=== PATIENT | male | born 1935 | race Caucasian/White ===

== ENCOUNTER → 2016-12-07 | Outpatient (CLI) | payer MEDICARE, BC ==
[2016-12-07 13:48] LABS: EKG EKG PERFORMED
[2016-12-07 14:12] LABS: Basophils % (A) 0 %; CH 33.4; CHCM 33.4; Eosinophils # (A) 0.1 k/uL (0-0.7); Eosinophils % (A) 1 %; HCT 46.9 % (39.0-53.0); HDW 2.46; HGB 15.3 gm/dL (13.0-17.5); Luc % (Auto) 3; Lymphocytes # (A) 1.7 k/uL (1.0-4.8); Lymphocytes % (A) 24 %; MCH 32.8 pg (25.0-35.0); MCHC 32.6 g/dL (31.0-37.0); MCV 100.4 fL (80.0-100.0); Mean Platelet Volume 7.3; Monocytes # (A) 0.5 k/uL (0-1.0); Monocytes % (A) 8 %; Neutrophils # (A) 4.4 k/uL (1.3-7.7); Neutrophils % (A) 64 %; RBC 4.67 m/uL (4.30-5.90); RDW 12.7 % (11.5-15.5); WBC 6.9 k/uL (3.8-10.6); WBC (Perox) 7.52
[2016-12-07 14:25] LABS: Anion Gap 10 mmol/L; Blood Urea Nitrogen 23 mg/dL (9-20); Calcium 9.7 mg/dL (8.4-10.2); Carbon Dioxide 26 mmol/L (22-30); Chloride 106 mmol/L (98-107); Glucose 116 mg/dL (74-99); Non-African American GFR(MDRD) 58 (>60 ml/min/1.73 sqM); Potassium 4.4 mmol/L (3.5-5.1); Sodium 142 mmol/L (137-145)
== END | disposition home or self-care (01) ==
LOC: LABPAT 13:34
PROVIDERS: ATTEND Urology
DX: Z01.812 Encounter for preprocedural laboratory examination (principal); N40.1 Benign prostatic hyperplasia with lower urinary tract symptoms; Z79.899 Other long term (current) drug therapy
CPT/HCPCS: 36415; 80048; 85025; 87077; 87086; 87186; 93005

== ENCOUNTER 2016-12-13 07:54 | Day surgery (SDC) | payer MEDICARE, BC ==
[2016-12-08 08:49] VITALS: BMI 30.1
[~2016-12-13 07:54] MED LIST: DEXAMETHASONE SOD PHOSPHATE 10 MG/ML 1 ML VIAL IV ONE; HYDROmorphone 1 MG/ML 1 ML SYRINGE IVP PRN; LACTATED RINGERS 1,000 ML IV SCH; LIDOCAINE 1% 20 ML VIAL (10MG/ML) FOR IV START INTRADERMA PRN; ONDANSETRON 4 MG/2 ML VIAL IVP ONE; SCOPOLAMINE 1.5MG/72HR PATCH TRANSDERM ONE; ceFAZolin 1,000 MG in DEXTROSE/WATER 1 50ML.BAG IV ONE
[2016-12-13] MEDS ORDERED: PROPOFOL 10 MG/ML 20 ML VIAL IV ONE (10:17)
[2016-12-13] MEDS ORDERED: LIDOCAINE 1% INJ 10MG/ML (20 ML MDV) ONE (10:17)
[2016-12-13] MEDS ORDERED: ePHEDrine SULFATE/0.9% NACL/PF 50 MG/5 ML SYRINGE IV ONE (10:17)
[2016-12-13] MEDS ORDERED: fentaNYL (PF) 50 MCG/ML 2 ML AMP ONE (10:17)
[2016-12-13] MEDS ORDERED: SUCCINYLCHOLINE CHLORIDE 100 MG/5 ML SYR IV ONE (10:17)
[2016-12-13] MEDS ORDERED: MIDAZOLAM 2 MG/2 ML VIAL ONE (10:17)
--- NOTE | 2016-12-13 11:38 | P.OP ---
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 He recently developed urinary retention and remains unable to void despite previous use of tamsulosin and finasteride. TURP is planned. Description of Procedure: The patient was taken to the operating suite where general anesthesia via orotracheal intubation was instituted. The patient was placed in the dorsal lithotomy position with his legs suspended from padded Cuate stirrups. Sequential pneumatic compression stockings were applied to the lower legs. The patient's Garza catheter was removed. The genitalia was prepped with Betadine soap, painted with Betadine solution and draped in a sterile fashion. The 25- Nauruan resectoscope sheath with visual obturator and 30 lens was passed through the urethra under direct vision. The anterior urethra was unremarkable. Prostatic urethra showed evidence of elongation and effacement of the lateral lobes in the midline which appeared obstructive. The bladder was examined. 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 The interior of the diverticulum was unremarkable. Both ureteral orifices were of normal location and configuration and effluxed clear urine. Resection of the prostate was performed using the continuous-flow Davis resectoscope and bipolar loop electrode. Resection was started at 12:00 and continued down to the capsular fibers. Resection was bounded by the bladder neck proximally and the prostatic urethra adjacent to the veru distally. A concentric fashion the right and left lobes were resected down to the floor. Posteriorly numerous small prostatic calculi were unroofed. Bleeding vessels were controlled using electrocautery. At the completion of procedure the bladder neck and prostatic fossa appeared wide open. All prostate fragments were removed from the bladder and prostatic fossae using the helical evacuator. After ensuring removal of all fragments and adequate hemostasis the resectoscope was withdrawn. An 18 Garza catheter was inserted and left to gravity drainage. The patient tolerated the procedure well and left the operative room awake in satisfactory condition. Blood loss was less than 40 mL. Patient's catheter will be left in place for several days prior to removal.
[2016-12-13 11:43] VITALS: TEMP 96.9
[2016-12-13 14:29] VITALS: BP 149/76; PULSE 62; RESP 18
== END 2016-12-13 14:20 | disposition home or self-care (01) ==
LOC: OR 07:54
PROVIDERS: ATTEND Urology
DX: N40.1 Benign prostatic hyperplasia with lower urinary tract symptoms (principal); R33.8 Other retention of urine; N42.0 Calculus of prostate; N32.3 Diverticulum of bladder; I25.10 Atherosclerotic heart disease of native coronary artery without angina pectoris; I10 Essential (primary) hypertension; Z87.891 Personal history of nicotine dependence; I25.2 Old myocardial infarction; E55.9 Vitamin D deficiency, unspecified; E78.00 Pure hypercholesterolemia, unspecified; E66.9 Obesity, unspecified; Z68.30 Body mass index [BMI] 30.0-30.9, adult; Z79.82 Long term (current) use of aspirin; Z79.899 Other long term (current) drug therapy
CPT/HCPCS: 52601; 88305; J2250; J1100; J2405; J2001; J3010; J0690; J0330; J2704

== ENCOUNTER 2020-05-19 20:01 | Inpatient (IN) | payer MEDICARE, BC ==
[2020-05-19] MEDS ORDERED: SODIUM CHLORIDE 0.9% 1,000 ML IV STA (20:26)
--- NOTE | 2020-05-19 20:31 | ED ---
Weakness HPI - General Chief complaint: Weakness Stated complaint: Weakness Time Seen by Provider: 05/19/20 20:14 Source: patient, EMS Mode of arrival: EMS Limitations: no limitations - History of Present Illness Initial comments: Patient is an 85-year-old male, with history of heart disease, presenting to the emergency department via EMS with complaints of lightheadedness, weakness that started this morning. Patient states he had a little of a stomachache and some nausea and vomiting this morning but states his stomach no longer hurts as bad. He denies any nausea. He denies any chest pain or shortness of breath. He states he does have a cough but states he normally has a cough. He states he feels weak and lightheaded. He has been drinking a lot of water today. He does admit to being a daily drinker but has not had any alcohol today. He denies any recent fever or chills. He has no other complaints at this time. Upon arrival to the ER, his vital signs are stable. - Related Data Home Medications Medication Instructions Recorded Confirmed Tamsulosin [Flomax] 0.4 cap PO BID 05/31/14 05/19/20 Finasteride [Proscar] 5 mg PO HS 12/08/16 05/19/20 Metoprolol Tartrate [Lopressor] 25 mg PO QA 12/08/16 05/19/20 Cholecalciferol [Vitamin D3 (25 25 mcg PO DAILY 05/19/20 05/19/20 Mcg = 1000 Iu)] Losartan [Cozaar] 12.5 mg PO HS 05/19/20 05/19/20 Rosuvastatin Calcium [Crestor] 5 mg PO HS 05/19/20 05/19/20 Urivarx 1 cap PO HS 05/19/20 05/19/20 Vitamin E 400 unit PO DAILY 05/19/20 05/19/20 guaiFENesin [Mucinex] 600 mg PO BID PRN 05/19/20 05/19/20 Allergies Allergy/AdvReac Type Severity Reaction Status Date / Time No Known Allergies Allergy Verified 05/19/20 21:22 Review of Systems ROS Statement: Those systems with pertinent positive or pertinent negative responses have been documented in the HPI. ROS Other: All systems not noted in ROS Statement are negative. Past Medical History Past Medical History: Coronary Artery Disease (CAD), Chest Pain / Angina, Hearing Disorder / Deafness, Hyperlipidemia, Myocardial Infarction ([place]), Pro state Disorder Additional Past Medical History / Comment(s): pt poor historian Last Myocardial Infarction Date:: 2005 History of Any Multi-Drug Resistant Organisms: None Reported Past Surgical History: Heart Catheterization With Stent, Hernia Repair, Orthopedic Surgery Additional Past Surgical History / Comment(s): INJECTION IN SPINE FOR BACK PAIN- IN OFFICE =epidural steroid injectionGROWTH REMOVED FROM LEFT ANTERIOR LOWER LEG- SCIATIC NERVE PAIN Past Anesthesia/Blood Transfusion Reactions: No Reported Reaction Additional Past Anesthesia/Blood Transfusion Reaction / Comment(s): NEVER HAD BLOOD TRANSFUSION Date of Last Stent Placement:: 2005 Past Psychological History: No Psychological Hx Reported Smoking Status: Former smoker Past Alcohol Use History: Daily Past Drug Use History: None Reported Additional Drug Use History / Comment(s): SMOKED A PACK/ AT MOST WHEN SMOKED - Past Family History Brother(s) Family Medical History: Cancer Father Family Medical History: Diabetes Mellitus, Myocardial Infarction ([place]) Additional Family Medical History / Comment(s): GLAUCOMA, AORTIC ANEURYSM Mother Family Medical History: CVA/TIA General Exam - General Exam Comments Initial Comments: GENERAL: Patient is well-developed and well-nourished. Patient is nontoxic and in no acute distress. HEAD: Atraumatic, normocephalic. EYES: Pupils equal round and reactive to light, extraocular movements intact, sclera anicteric, conjunctiva are normal. Eyelids were unremarkable. ENT: TMs normal, nares patent, oropharynx clear without exudates. Moist mucous membranes. NECK: Normal range of motion, supple without lymphadenopathy or JVD. LUNGS: Unlabored respirations. Breath sounds clear to auscultation bilaterally and equal. No wheezes rales or rhonchi. HEART: Regular rate and rhythm without murmurs, rubs or gallops. ABDOMEN: Soft, mild tender RUQ, normoactive bowel sounds. No guarding, no rebound. No masses appreciated. : Deferred MUSCULOSKELETAL: Normal extremities with adequate strength and normal range of motion, no pitting or edema. No clubbing or cyanosis. NEUROLOGICAL: Patient is alert and oriented x 3. Motor and sensory are also intact. Cranial nerves II through XII grossly intact. Symmetrical smile. Normal speech, normal gait. PSYCH: Normal mood, normal affect. SKIN: Warm, Dry, normal turgor, no rashes or lesions noted. Limitations: no limitations Course Vital Signs 05/19/20 05/19/20 05/19/20 20:02 21:00 22:00 Temperature 98.7 F Pulse Rate 66 63 73 Pulse Rate [ Pulse Oximetery ] Respiratory 18 18 16 Rate Blood Pressure 106/66 137/63 Blood Pressure [Left Arm] O2 Sat by Pulse 94 L 92 L Oximetry 05/20/20 05/20/20 01:45 03:15 Temperature 98.4 F 98.5 F Pulse Rate Pulse Rate [ 72 88 Pulse Oximetery ] Respiratory 16 16 Rate Blood Pressure Blood Pressure 123/64 134/77 [Left Arm] O2 Sat by Pulse 96 96 Oximetry EKG Findings - EKG Comments: EKG Findings:: Sinus rhythm with first-degree AV block, inferior infarct age undetermined, no signs of acute process. Ventricular rate 64, MO interval 226, QT 430. Similar to previous EKG on 12/07/2016. Medical Decision Making - Medical Decision Making Patient is a 5-year-old male here for weakness, nausea, abdominal pain that started this morning. Patient was brought in by EMS secondary to not being able to get up on his own. Upon arrival to the ER, his vital signs are stable. Exam revealed some right upper quadrant tenderness, no other acute process. His EKG is stable. Chest x-ray shows fibrotic changes, subsegmental atelectasis, no heart failure. Labs reveal normal white count, creatinine was elevated from baseline at 1.31, lactic acid was 2.9. Patient's liver enzymes are elevated, AST is 1500, ALTs 300. Lipase is normal at 118. Serum alcohol was not detected. Rapid Covid was not detected. Liver ultrasound showed cholelithiasis. I discussed case with Dr. Maguire who agreed with admission for transaminitis, weakness. Will place GI on consult. UA is pending at this time. Case discussed with Dr. Brown. - Lab Data Result diagrams: 05/19/20 20:37 05/19/20 20:37 Lab Results 05/19/20 05/19/20 05/19/20 Range/Units 02:49 20:37 20:37 WBC 10.6 (3.8-10.6) k/uL RBC 4.48 (4.30-5.90) m/uL Hgb 14.9 (13.0-17.5) gm/dL Hct 43.2 (39.0-53.0) % MCV 96.5 (80.0-100.0) fL MCH 33.3 (25.0-35.0) pg MCHC 34.5 (31.0-37.0) g/dL RDW 13.4 (11.5-15.5) % Plt Count 147 L (150-450) k/uL MPV 8.9 Neutrophils % 86 % Lymphocytes % 6 % Monocytes % 7 % Eosinophils % 1 % Basophils % 0 % Neutrophils # 9.1 H (1.3-7.7) k/uL Lymphocytes # 0.7 L (1.0-4.8) k/uL Monocytes # 0.7 (0-1.0) k/uL Eosinophils # 0.1 (0-0.7) k/uL Basophils # 0.0 (0-0.2) k/uL PT 10.9 (9.0-12.0) sec INR 1.0 (<1.2) APTT 21.7 L (22.0-30.0) sec Sodium (137-145) mmol/L Potassium (3.5-5.1) mmol/L Chloride (98-107) mmol/L Carbon Dioxide (22-30) mmol/L Anion Gap mmol/L BUN (9-20) mg/dL Creatinine (0.66-1.25) mg/dL Est GFR (CKD-EPI)AfAm (>60 ml/min/1.73 sqM) Est GFR (CKD-EPI)NonAf (>60 ml/min/1.73 sqM) Glucose (74-99) mg/dL Lactic Ac Sepsis Rflx Plasma Lactic Acid Jamison (0.7-2.0) mmol/L Calcium (8.4-10.2) mg/dL Magnesium (1.6-2.3) mg/dL Total Bilirubin (0.2-1.3) mg/dL AST (17-59) U/L ALT (4-49) U/L Alkaline Phosphatase (38-126) U/L Troponin I (0.000-0.034) ng/mL NT-Pro-B Natriuret Pep pg/mL Total Protein (6.3-8.2) g/dL Albumin (3.5-5.0) g/dL Lipase (23-300) U/L Urine Color Dark Yellow Urine Appearance Clear (Clear) Urine pH 6.5 (5.0-8.0) Ur Specific [place] 1.018 (1.001-1.035) Urine Protein Trace H (Negative) Urine Glucose (UA) Negative (Negative) Urine Ketones Negative (Negative) Urine Blood Negative (Negative) Urine Nitrite Negative (Negative) Urine Bilirubin 1+ H (Negative) Urine Urobilinogen 12.0 (<2.0) mg/dL Ur Leukocyte Esterase Large H (Negative) Urine RBC 2 (0-5) /hpf Urine WBC 70 H (0-5) /hpf Ur Squamous Epith Cells 1 (0-4) /hpf Urine Bacteria Few H (None) /hpf Urine Mucus Rare H (None) /hpf Serum Alcohol mg/dL Coronavirus (PCR) (Not Detectd) 05/19/20 05/19/20 05/19/20 Range/Units 20:37 20:37 20:37 WBC (3.8-10.6) k/uL RBC (4.30-5.90) m/uL Hgb (13.0-17.5) gm/dL Hct (39.0-53.0) % MCV (80.0-100.0) fL MCH (25.0-35.0) pg MCHC (31.0-37.0) g/dL RDW (11.5-15.5) % Plt Count (150-450) k/uL MPV Neutrophils % % Lymphocytes % % Monocytes % % Eosinophils % % Basophils % % Neutrophils # (1.3-7.7) k/uL Lymphocytes # (1.0-4.8) k/uL Monocytes # (0-1.0) k/uL Eosinophils # (0-0.7) k/uL Basophils # (0-0.2) k/uL PT (9.0-12.0) sec INR (<1.2) APTT (22.0-30.0) sec Sodium 139 (137-145) mmol/L Potassium 3.7 (3.5-5.1) mmol/L Chloride 103 (98-107) mmol/L Carbon Dioxide 28 (22-30) mmol/L Anion Gap 8 mmol/L BUN 27 H (9-20) mg/dL Creatinine 1.31 H (0.66-1.25) mg/dL Est GFR (CKD-EPI)AfAm 57 (>60 ml/min/1.73 sqM) Est GFR (CKD-EPI)NonAf 49 (>60 ml/min/1.73 sqM) Glucose 182 H (74-99) mg/dL Lactic Ac Sepsis Rflx Plasma Lactic Acid Jamison 2.9 H* (0.7-2.0) mmol/L Calcium 9.1 (8.4-10.2) mg/dL Magnesium 1.9 (1.6-2.3) mg/dL Total Bilirubin 4.7 H (0.2-1.3) mg/dL AST 1565 H (17-59) U/L ALT 370 H (4-49) U/L Alkaline Phosphatase 187 H (38-126) U/L Troponin I 0.014 (0.000-0.034) ng/mL NT-Pro-B Natriuret Pep pg/mL Total Protein 6.4 (6.3-8.2) g/dL Albumin 3.5 (3.5-5.0) g/dL Lipase (23-300) U/L Urine Color Urine Appearance (Clear) Urine pH (5.0-8.0) Ur Specific [place] (1.001-1.035) Urine Protein (Negative) Urine Glucose (UA) (Negative) Urine Ketones (Negative) Urine Blood (Negative) Urine Nitrite (Negative) Urine Bilirubin (Negative) Urine Urobilinogen (<2.0) mg/dL Ur Leukocyte Esterase (Negative) Urine RBC (0-5) /hpf Urine WBC (0-5) /hpf Ur Squamous Epith Cells (0-4) /hpf Urine Bacteria (None) /hpf Urine Mucus (None) /hpf Serum Alcohol <10 mg/dL Coronavirus (PCR) (Not Detectd) 05/19/20 05/19/20 05/19/20 Range/Units 20:37 20:37 21:13 WBC (3.8-10.6) k/uL RBC (4.30-5.90) m/uL Hgb (13.0-17.5) gm/dL Hct (39.0-53.0) % MCV (80.0-100.0) fL MCH (25.0-35.0) pg MCHC (31.0-37.0) g/dL RDW (11.5-15.5) % Plt Count (150-450) k/uL MPV Neutrophils % % Lymphocytes % % Monocytes % % Eosinophils % % Basophils % % Neutrophils # (1.3-7.7) k/uL Lymphocytes # (1.0-4.8) k/uL Monocytes # (0-1.0) k/uL Eosinophils # (0-0.7) k/uL Basophils # (0-0.2) k/uL PT (9.0-12.0) sec INR (<1.2) APTT (22.0-30.0) sec Sodium (137-145) mmol/L Potassium (3.5-5.1) mmol/L Chloride (98-107) mmol/L Carbon Dioxide (22-30) mmol/L Anion Gap mmol/L BUN (9-20) mg/dL Creatinine (0.66-1.25) mg/dL Est GFR (CKD-EPI)AfAm (>60 ml/min/1.73 sqM) Est GFR (CKD-EPI)NonAf (>60 ml/min/1.73 sqM) Glucose (74-99) mg/dL Lactic Ac Sepsis Rflx Y Plasma Lactic Acid Jamison (0.7-2.0) mmol/L Calcium (8.4-10.2) mg/dL Magnesium (1.6-2.3) mg/dL Total Bilirubin (0.2-1.3) mg/dL AST (17-59) U/L ALT (4-49) U/L Alkaline Phosphatase (38-126) U/L Troponin I (0.000-0.034) ng/mL NT-Pro-B Natriuret Pep 3390 pg/mL Total Protein (6.3-8.2) g/dL Albumin (3.5-5.0) g/dL Lipase 118 (23-300) U/L Urine Color Urine Appearance (Clear) Urine pH (5.0-8.0) Ur Specific [place] (1.001-1.035) Urine Protein (Negative) Urine Glucose (UA) (Negative) Urine Ketones (Negative) Urine Blood (Negative) Urine Nitrite (Negative) Urine Bilirubin (Negative) Urine Urobilinogen (<2.0) mg/dL Ur Leukocyte Esterase (Negative) Urine RBC (0-5) /hpf Urine WBC (0-5) /hpf Ur Squamous Epith Cells (0-4) /hpf Urine Bacteria (None) /hpf Urine Mucus (None) /hpf Serum Alcohol mg/dL Coronavirus (PCR) (Not Detectd) 05/19/20 Range/Units 22:46 WBC (3.8-10.6) k/uL RBC (4.30-5.90) m/uL Hgb (13.0-17.5) gm/dL Hct (39.0-53.0) % MCV (80.0-100.0) fL MCH (25.0-35.0) pg MCHC (31.0-37.0) g/dL RDW (11.5-15.5) % Plt Count (150-450) k/uL MPV Neutrophils % % Lymphocytes % % Monocytes % % Eosinophils % % Basophils % % Neutrophils # (1.3-7.7) k/uL Lymphocytes # (1.0-4.8) k/uL Monocytes # (0-1.0) k/uL Eosinophils # (0-0.7) k/uL Basophils # (0-0.2) k/uL PT (9.0-12.0) sec INR (<1.2) APTT (22.0-30.0) sec Sodium (137-145) mmol/L Potassium (3.5-5.1) mmol/L Chloride (98-107) mmol/L Carbon Dioxide (22-30) mmol/L Anion Gap mmol/L BUN (9-20) mg/dL Creatinine (0.66-1.25) mg/dL Est GFR (CKD-EPI)AfAm (>60 ml/min/1.73 sqM) Est GFR (CKD-EPI)NonAf (>60 ml/min/1.73 sqM) Glucose (74-99) mg/dL Lactic Ac Sepsis Rflx Plasma Lactic Acid Jamison (0.7-2.0) mmol/L Calcium (8.4-10.2) mg/dL Magnesium (1.6-2.3) mg/dL Total Bilirubin (0.2-1.3) mg/dL AST (17-59) U/L ALT (4-49) U/L Alkaline Phosphatase (38-126) U/L Troponin I (0.000-0.034) ng/mL NT-Pro-B Natriuret Pep pg/mL Total Protein (6.3-8.2) g/dL Albumin (3.5-5.0) g/dL Lipase (23-300) U/L Urine Color Urine Appearance (Clear) Urine pH (5.0-8.0) Ur Specific [place] (1.001-1.035) Urine Protein (Negative) Urine Glucose (UA) (Negative) Urine Ketones (Negative) Urine Blood (Negative) Urine Nitrite (Negative) Urine Bilirubin (Negative) Urine Urobilinogen (<2.0) mg/dL Ur Leukocyte Esterase (Negative) Urine RBC (0-5) /hpf Urine WBC (0-5) /hpf Ur Squamous Epith Cells (0-4) /hpf Urine Bacteria (None) /hpf Urine Mucus (None) /hpf Serum Alcohol mg/dL Coronavirus (PCR) Not Detected (Not Detectd) Disposition Clinical Impression: Transaminitis, Weakness, Dehydration, Lactic acidosis Disposition: ADMITTED IP TO THIS [facility] Condition: Stable Decision Date: 05/19/20 Decision Time: 23:00
[2020-05-19 21:03] LABS: ALT 370 U/L (4-49); African American GFR (CKD) 57 (>60 ml/min/1.73 sqM); Albumin 3.5 g/dL (3.5-5.0); Alcohol <10 mg/dL; Alkaline Phosphatase 187 U/L (38-126); Anion Gap 8 mmol/L; Blood Urea Nitrogen 27 mg/dL (9-20); Calcium 9.1 mg/dL (8.4-10.2); Carbon Dioxide 28 mmol/L (22-30); Chloride 103 mmol/L (98-107); Glucose 182 mg/dL (74-99); Magnesium 1.9 mg/dL (1.6-2.3); Non-African American GFR(CKD) 49 (>60 ml/min/1.73 sqM); Potassium 3.7 mmol/L (3.5-5.1); Sodium 139 mmol/L (137-145); Total Bilirubin 4.7 mg/dL (0.2-1.3); Total Protein 6.4 g/dL (6.3-8.2)
[2020-05-19 21:06] LABS: Prothrombin Time 10.9 sec (9.0-12.0)
[2020-05-19 21:08] LABS: Basophils % (A) 0 %; Eosinophils # (A) 0.1 k/uL (0-0.7); Eosinophils % (A) 1 %; HCT 43.2 % (39.0-53.0); HGB 14.9 gm/dL (13.0-17.5); Lymphocytes # (A) 0.7 k/uL (1.0-4.8); Lymphocytes % (A) 6 %; MCH 33.3 pg (25.0-35.0); MCHC 34.5 g/dL (31.0-37.0); MCV 96.5 fL (80.0-100.0); Mean Platelet Volume 8.9; Monocytes # (A) 0.7 k/uL (0-1.0); Monocytes % (A) 7 %; Neutrophils # (A) 9.1 k/uL (1.3-7.7); Neutrophils % (A) 86 %; Platelet Count 147 k/uL (150-450); RBC 4.48 m/uL (4.30-5.90); RDW 13.4 % (11.5-15.5); WBC 10.6 k/uL (3.8-10.6)
[2020-05-19 21:12] LABS: Partial Thromboplastin Time 21.7 sec (22.0-30.0)
--- NOTE | 2020-05-19 21:14 | XR ---
EXAMINATION TYPE: XR chest 2V DATE OF EXAM: 05/19/2020 COMPARISON: 09/28/2015 HISTORY: Nausea. Weakness. TECHNIQUE: 2 views FINDINGS: Heart is normal. There is patchy interstitial density at the lung bases consistent with ate lectasis and scarring. There are no hilar masses. Thoracic aorta is atheromatous. There are chest traci ds. There is no pleural effusion. IMPRESSION: Fibrotic changes and subsegmental atelectasis at the lung bases similar to old exam. No h eart failure seen.
[2020-05-19 21:36] LABS: AST 1565 U/L (17-59)
--- NOTE | 2020-05-19 22:13 | US ---
EXAMINATION TYPE: US liver DATE OF EXAM: 05/19/2020 COMPARISON: Kidney US CLINICAL HISTORY: pain, vomiting, elevated LFTs/bili. Pain, vomiting x 1 day. Elevated LFTs/bili. EXAM MEASUREMENTS: Liver Length: 18.8 cm Gallbladder Wall: 0.29 cm CBD: 0.79 cm Right Kidney: 11.9 x 5.1 x 5.7 cm Pancreas: Limited due to gas. Liver: Appears enlarged and to have an increased echogenicity. Gallbladder: Multiple hyperechoic foci with posterior shadowing seen within the gallbladder. Gallbla dder measures 8.8 cm in length and 4.2 cm in width. Evidence for sonographic Tyler's sign: No CBD: Appears dilated. Right Kidney: Hypoechoic area seen laterally at mid-lower pole: 1.8 x 2.3 x 1.7 cm. Cortex appears t hin. IMPRESSION: No focal liver defect. Possible fatty infiltration of the liver. Cholelithiasis. No dilat ion seen of the intrahepatic bile ducts.
[2020-05-19] MEDS ORDERED: NALOXONE 0.4 MG/ML 1 ML VIAL IV PRN (22:54)
[2020-05-19] MEDS ORDERED: ONDANSETRON 4 MG/2 ML VIAL IVP PRN (22:58)
[2020-05-20] MEDS: SODIUM CHLORIDE 0.9% 1,000 ML IV SCH ×2 (00:46→14:25)
[2020-05-20] MEDS: PANTOPRAZOLE 40 MG/10 ML VIAL IV SCH ×2 (00:46→07:30)
[2020-05-20 03:36] LABS: Appearance,Urine Clear (Clear); Bacteria,Urine Few /hpf; Bilirubin,Urine 1+ (Negative); Blood,Urine Negative (Negative); Color,Urine Dark Yellow; Glucose,Urine (UA) Negative (Negative); Ketones,Urine Negative (Negative); Leukocyte Esterase,Urine Large (Negative); Mucus,Urine Rare /hpf; Nitrite,Urine Negative (Negative); PH, Urine 6.5 (5.0-8.0); Protein,Urine Trace (Negative); RBC,Urine 2 /hpf (0-5); Specific Gravity,Urine 1.018 (1.001-1.035); Squamous Epithelial Cell,Urine 1 /hpf (0-4); WBC,Urine 70 /hpf (0-5)
[2020-05-20] MEDS ORDERED: guaiFENesin 600 MG TABLET.ER PO PRN (08:16)
[2020-05-20] MEDS: TAMSULOSIN 0.4 MG CAP.ER.24H PO SCH ×2 (08:43→20:27)
[2020-05-20] MEDS: CHOLECALCIFEROL 25 MCG (1000 IU) TABLET PO SCH (08:43)
[2020-05-20] MEDS: HEPARIN SODIUM,PORCINE 5,000 UNIT/ML 1 ML VIAL SQ SCH ×2 (08:43→20:26)
[2020-05-20] MEDS ORDERED: METOPROLOL TARTRATE 25 MG TAB PO SCH (09:00)
--- NOTE | 2020-05-20 12:10 | P.HPIM ---
History of Present Illness H&P Date: 05/20/20 Chief Complaint: Lightheadedness and weakness HISTORY OF PRESENT ILLNESS This is an 85-year-old male patient of Dr. England with past medical history of non-ST elevated myocardial infarction status post CABG 4, HYATT to LAD, SVG to first obtuse marginal, SVG to second obtuse marginal, SVG to RCA, and previous stenting of the RCA, hypertension hypertensive cardiovascular disease, hyperlipidemia, benign prostatic hypertrophy, chronic back pain status post steroid injections and pain procedures, remote history of tobacco use. Patient states that he had a little bit of a stomachache and vomiting diarrhea and dizziness. He states the dizziness has been a couple years. The abdominal discomfort was in the bilateral lower quadrants that have resolved completely. He denies having any dysuria. He denies any pain at all. Patient presented to [facility] emergency center for evaluation. He was afebrile, heart rate 66, blood pressure 106/66, pulse ox 94% on room air. EKG was sinus rhythm with no acute ST changes. WBC 10.6, hemoglobin 14.9 and platelet count 147. Electrolytes normal, BUN 27 creatinine 1.31. Blood sugar 182. Magnesium 1.9. Total bilirubin 4.7, AST 1565, ALT 370, alkaline phosphatase 187. Serum alcohol level less than 10. Lactic acid 2.9. Troponin 0.014. ProBNP 3390. Urinalysis clear, bilirubin 1+, protein trace, leukoesterase large, WBC 70. Liver ultrasound revealed no focal liver defect. Possible fatty infiltration of the liver. Cholelithiasis. No dilation seen of the intrahepatic bile ducts. Chest x-ray reveals fibrotic changes and subsegmental atelectasis at the lung bases. No heart failure. Patient was given 1 L of IV fluids, [facility] and consult requested with GI. REVIEW OF SYSTEMS The time of my evaluation: Constitutional: No fever, no chills, no night sweats. No weight change. No weakness, fatigue or lethargy. No daytime sleepiness. EENT: No headache. No blurred vision or double vision, no loss of vision. No loss of Hearing, no ringing in the ears, no dizziness. No nasal drainage or congestion. No epistaxis. No sore throat. Lungs: No shortness of breath, cough, no sputum production. No wheezing. Cardiovascular: No chest pain, no lower extremity edema. No palpitations. No paroxysmal nocturnal dyspnea. No orthopnea. No lightheadedness or dizziness. No syncopal episodes. Abdominal: No abdominal pain. No nausea, vomiting. No diarrhea. No constipation. No bloody or tarry stools.. No loss of appetite. Genitourinary: No dysuria, increased frequency, urgency. No urinary retention. Musculoskeletal: No myalgias. No muscle weakness, no gait dysfunction, no frequent falls. No back pain. No neck pain. Integumentary: No wounds, no lesions. No rash or pruritus. No unusual bruising. No change in hair or nails. Neurologic: No aphasia. No facial droop. No change in mentation. No head injury. No headache. No paralysis. No paresthesia. Psychiatric: No depression. No anxiety. No mood swings. Endocrine: No abnormal blood sugars. No weight change. No excessive sweating or thirst. No cold intolerance. SOCIAL HISTORY Patient was a smoker of 1 pack per day since he was 11 years old and quit 10 years ago. He drinks one martini every day. No illicit drug use. He lives at home with his . FAMILY HISTORY Mother at age 84 from a CVA at age 92 in a motor vehicle accident. Patient has 2 brothers and one at age 18 from a motor vehicle accident and one at age 52 from lymphoma. Patient does not have any sisters. Patient has 2 sons with no major medical problems.. PHYSICAL EXAMINATION Gen: This is 85-year-old male. He is resting bed and appears to be comfortable and in no acute distress. HEENT: Head is atraumatic, normocephalic. Pupils equal, round. Sclerae is anicteric. NECK: Supple. No JVD. No lymphadenopathy. No thyromegaly. LUNGS: Clear to auscultation. No wheezes or rhonchi. No intercostal retractions. HEART: Regular rate and rhythm. No murmur. ABDOMEN: Soft. Bowel sounds are present. No masses. No tenderness. No right upper quadrant tenderness. EXTREMITIES: No pedal edema. No calf tenderness. NEUROLOGICAL: Patient is awake, alert and oriented x3. Cranial nerves 2 through 12 are grossly intact. ASSESSMENT AND PLAN 1. Transaminitis of unclear etiology. Consult with GI. Crestor placed on hold. 2. Lactic acidosis, improving status post 1 L of IV fluids. Continue IV fluids at 75 mL per hour. 3. Hypertension, hypertensive cardio vascular disease. Continue losartan 12.5 mg at bedtime, Lopressor 25 mg in the morning. 4. History of coronary artery disease status post CABG. Continue metoprolol. 5. Hyperlipidemia. Statin on hold due to elevated liver function test. 6. Benign prostatic hypertrophy. Continue Flomax 0.4 mg twice daily. Monitor for urinary retention. 7. Chronic back pain status post multiple pain procedures, stable. 8. GI prophylaxis. Protonix 40 mg daily. 9. Thrombocytopenia. A CBC. 10. GI prophylaxis. Protonix 40 mg IV daily. 11. DVT prophylaxis. Heparin subcu. Patient will be admitted to the hospital for a minimum of 2 night stay. DISCHARGE PLAN To be determined. PT and OT added. Impression and plan of care have been directed as dictated by the signing physician. Pauly Wakefield nurse practitioner acting as scribe for signing physician. Past Medical History Past Medical History: Coronary Artery Disease (CAD), Chest Pain / Angina, Hearing Disorder / Deafness, Hyperlipidemia, Myocardial Infarction ([place]), Prostate Disorder Additional Past Medical History / Comment(s): pt poor historian Last Myocardial Infarction Date:: 2005 History of Any Multi-Drug Resistant Organisms: None Reported Past Surgical History: Coronary Bypass/CABG, Heart Catheterization With Stent, Hernia Repair, Orthopedic Surgery Additional Past Surgical History / Comment(s): INJECTION IN SPINE FOR BACK PAIN- IN OFFICE =epidural steroid injectionGROWTH REMOVED FROM LEFT ANTERIOR LOWER LEG- SCIATIC NERVE PAIN cabg 5 years ago Past Anesthesia/Blood Transfusion Reactions: No Reported Reaction Additional Past Anesthesia/Blood Transfusion Reaction / Comment(s): NEVER HAD BLOOD TRANSFUSION Date of Last Stent Placement:: 2005 Past Psychological History: No Psychological Hx Reported Smoking Status: Former smoker Past Alcohol Use History: Daily Past Drug Use History: None Reported Additional Drug Use History / Comment(s): SMOKED A PACK/ AT MOST WHEN SMOKED - Past Family History Brother(s) Family Medical History: Cancer Father Family Medical History: Diabetes Mellitus, Myocardial Infarction ([place]) Additional Family Medical History / Comment(s): GLAUCOMA, AORTIC ANEURYSM Mother Family Medical History: CVA/TIA Medications and Allergies Home Medications Medication Instructions Recorded Confirmed Type Tamsulosin [Flomax] 0.4 cap PO BID 05/31/14 05/19/20 History Finasteride [Proscar] 5 mg PO HS 12/08/16 05/19/20 History Metoprolol Tartrate [Lopressor] 25 mg PO QAM 12/08/16 05/19/20 History Cholecalciferol [Vitamin D3 (25 25 mcg PO DAILY 05/19/20 05/19/20 History Mcg = 1000 Iu)] Losartan [Cozaar] 12.5 mg PO HS 05/19/20 05/19/20 History Rosuvastatin Calcium [Crestor] 5 mg PO HS 05/19/20 05/19/20 History Urivarx 1 cap PO HS 05/19/20 05/19/20 History Vitamin E 400 unit PO DAILY 05/19/20 05/19/20 History guaiFENesin [Mucinex] 600 mg PO BID PRN 05/19/20 05/19/20 History Allergies Allergy/AdvReac Type Severity Reaction Status Date / Time No Known Allergies Allergy Verified 05/19/20 21:22 Physical Exam Vitals: Vital Signs Temp Pulse Pulse Resp BP BP Pulse Ox 05/20/20 03:15 98.5 F 88 16 134/77 96 05/20/20 01:45 98.4 F 72 16 123/64 96 05/19/20 22:00 73 16 137/63 05/19/20 21:00 63 18 92 L 05/19/20 20:02 98.7 F 66 18 106/66 94 L Intake and Output 05/19/20 05/20/20 05/20/20 22:59 06:59 14:59 Intake Total 100 Balance 100 Intake: Intake, IV Titration 100 Amount Sodium Chloride 0.9% 1, 100 000 ml @ 75 mls/hr IV . [id number] [facility] Rx#:[id number] Other: Weight 90.718 kg 90.718 kg Results CBC & Chem 7: 05/19/20 20:37 05/19/20 20:37 Labs: Abnormal Lab Results - Last 24 Hours (Table) 05/19/20 05/19/20 05/19/20 Range/Units 02:49 20:37 20:37 Plt Count 147 L (150-450) k/uL Neutrophils # 9.1 H (1.3-7.7) k/uL Lymphocytes # 0.7 L (1.0-4.8) k/uL APTT 21.7 L (22.0-30.0) sec BUN (9-20) mg/dL Creatinine (0.66-1.25) mg/dL Glucose (74-99) mg/dL Plasma Lactic Acid Jamison (0.7-2.0) mmol/L Total Bilirubin (0.2-1.3) mg/dL AST (17-59) U/L ALT (4-49) U/L Alkaline Phosphatase (38-126) U/L Urine Protein Trace H (Negative) Urine Bilirubin 1+ H (Negative) Ur Leukocyte Esterase Large H (Negative) Urine WBC 70 H (0-5) /hpf Urine Bacteria Few H (None) /hpf Urine Mucus Rare H (None) /hpf 05/19/20 05/19/20 Range/Units 20:37 20:37 Plt Count (150-450) k/uL Neutrophils # (1.3-7.7) k/uL Lymphocytes # (1.0-4.8) k/uL APTT (22.0-30.0) sec BUN 27 H (9-20) mg/dL Creatinine 1.31 H (0.66-1.25) mg/dL Glucose 182 H (74-99) mg/dL Plasma Lactic Acid Jamison 2.9 H* (0.7-2.0) mmol/L Total Bilirubin 4.7 H (0.2-1.3) mg/dL AST 1565 H (17-59) U/L ALT 370 H (4-49) U/L Alkaline Phosphatase 187 H (38-126) U/L Urine Protein (Negative) Urine Bilirubin (Negative) Ur Leukocyte Esterase (Negative) Urine WBC (0-5) /hpf Urine Bacteria (None) /hpf Urine Mucus (None) /hpf Thrombosis Risk Factor Assmnt - Choose All That Apply Any of the Below Risk Factors Present?: No Other Risk Factors: Yes Each Risk Factor Represents 3 Points: Age 75 years or older Thrombosis Risk Factor Assessment Total Risk Factor Score: 3 Thrombosis Risk Factor Assessment Level: Moderate Risk
--- NOTE | 2020-05-20 15:11 | MR ---
EXAMINATION TYPE: MR MRCP DATE OF EXAM: 05/20/2020 COMPARISON: Liver ultrasound from yesterday. CTA chest 2014. HISTORY: Elevated LFTS, cholelithiasis Standard multiplanar, multisequence MRI departmental protocol Multiplanar, multisequence images of the abdomen were acquired. Diffusion weighted imaging was perfor med. Thin and thick slice MRCP imaging performed on the MRI scanner. FINDINGS: Exam though is suboptimal as patient unable to hold breath. Patient also has motion artifac t, repeat sequences were attempted. IMPRESSION: Liver/gallbladder/pancreas/biliary system: Mild to moderate generalized fat replaced atrophy of the p ancreas. Liver lower limits of normal in size with diffuse signal dropout consistent with diffuse fat ty infiltration. No concerning solid cystic mass. No surrounding ascites. Gallbladder shows multiple small dependent gallstones. There is abnormal concentric gallbladder wall thickening up to 9 mm. No p ancreatic ductal dilatation is seen in the body and tail. There is thin walled cystic lesion near duo denal ampulla suspected large duodenal diverticulum with air-fluid level measuring approximately 6.4 x 3.9 x 4.4 cm craniocaudal dimension axial image 15 series 501 and coronal image 18 series 301. Panc reatic duct is seen best on MRCP images posterior to the lesion, mild to minimally dilated up to 4 mm . There are multiple intraluminal gallstones in the common bile duct, approximately 15 stones are sima ntified and extra hepatic ducts are mildly dilated at 8 to 9 mm. There is no intrahepatic biliary dil atation. Distal common bile duct not well seen but is felt laterally displaced due to the large duode nal diverticulum in the second portion. Other: Cortical thinning in this view small thin-walled cyst in both kidneys are noted. 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 Follow-up advised. Adrenal glands wi thin normal limits along with spleen. Diverticula in the colon is present. There is marked prominence of the retroperitoneal fat surrounding the kidneys occupying roughly 2/3 of the intra-abdominal spac e. Osseous structures are intact. Impression: Suboptimal study. Multiple common bile duct stones are present. Mild extra hepatic biliar y dilatation. No intrahepatic biliary dilatation. Additional multiple intraluminal gallstones with ab normal gallbladder wall thickening. Acute cholecystitis cannot be excluded. Large duodenal diverticul um is felt present. Consider surgical exploration or further investigation or confirmation with CT ab domen as due to patient's size and age MRI abdomen is very difficult for optimal imaging. Mild diffus e fatty infiltration of liver is confirmed.
--- NOTE | 2020-05-20 17:14 | CONS ---
CONSULTATION DATE OF SERVICE: May 20, 2020. REASON FOR CONSULTATION: Abdominal pain and elevated LFTs. HISTORY OF PRESENT ILLNESS: The patient is an 85-year-old pleasant white male admitted to the hospital with abdominal pain associated with nausea, vomiting that started yesterday morning. He became somewhat dizzy and was about to pass out. His help him up and called EMS and subsequently admitted to the hospital for further evaluation. In the ER, he was noted to have elevated serum transaminases as well as jaundice with a T-bilirubin of 4.7, AST of 1565, ALT of 372, and alkaline phosphatase of 187. He did have ultrasound done that showed gallstones but no biliary ductal dilation noted. This morning, he is feeling better. Abdominal pain has resolved. He had some nausea but no emesis. He never had these symptoms in the past. PAST MEDICAL HISTORY: Significant for coronary artery disease, hypertension, hyperlipidemia, history of CO in the past. PAST SURGICAL HISTORY: CABG, cardiac catheterization with stent placement, hernia repair, epidural injection for the back. MEDICATIONS: At home, Flomax, Proscar, metoprolol, Cozaar, Crestor, Urivarx, Mucinex. ALLERGIES: None. SOCIAL HISTORY: No smoking. No alcohol use. FAMILY HISTORY: Brother had some cancer. Father had coronary artery disease. Mother had CVA and TIA. REVIEW OF SYSTEMS: CARDIOPULMONARY: He denies any chest pain. He denies any shortness of breath. GENITOURINARY: No dysuria or hematuria. MUSCULOSKELETAL: Complaining of some neck pain. NEUROLOGY: Intermittent episodes of dizziness for which he is being evaluated by Cardiology. ENT: Vision unremarkable. CONSTITUTIONAL: No recent weight loss. No fever, chills, night sweats. GI as mentioned above. HEMATOLOGY unremarkable. PSYCHIATRIC unremarkable. PHYSICAL EXAMINATION: He appears comfortable. VITAL SIGNS: Stable. Blood pressure 159/81, pulse is 67, temperature 97.9. HEENT examination unremarkable. Conjunctivae pink. Sclerae anicteric. Oral cavity no lesions. NECK: No JVD or lymph node enlargement. CHEST was clear to auscultation. HEART: Regular rate and rhythm. ABDOMEN: Soft. There was mild tenderness, diffusely all over the abdomen. It was obese. EXTREMITIES: No pedal edema. SKIN: No rashes. NEURO: He is alert and oriented x3. No focal deficits. LABS: WBC 10.6, hemoglobin 14, platelets 147. PTT/ INR is within normal limits. BUN 27, creatinine 1.31. T-bilirubin is 4.7, AST 1565, ALT is 370, alkaline phosphatase 187. Ferrara virus PCR is negative. IMPRESSION: 1. This is a patient who presented to the hospital with acute onset of abdominal pain associated with nausea, vomiting, and dizziness that started yesterday evening. At the time of admission to the hospital, he was noted to have elevated serum transaminases with jaundice with a bilirubin of 4.7 and significant elevation of serum transaminases and ultrasound did show evidence of gallstones but no biliary ductal dilation. At this time, possibility of choledocholithiasis needs to be considered. 2. History of hypertension. 3. History of hyperlipidemia. 4. History of coronary artery disease status post coronary artery bypass grafting in the past. RECOMMENDATIONS: 1. Clear liquid diet. 2. Obtain MRCP to evaluate for CBD stones and based on that we will consider proceeding with an ERCP tomorrow. 3. Repeat labs in the morning including CBC and CMP. 4. Continue symptomatic supportive care. 5. Clear liquid diet today. 6. We will follow with you closely. Thank you for this consultation. MMODL / IJN: [id number] /
[2020-05-20] MEDS: LOSARTAN 25 MG TAB PO SCH (20:26)
[2020-05-20] MEDS: FINASTERIDE 5 MG TAB PO SCH (20:27)
[2020-05-21] MEDS: SODIUM CHLORIDE 0.9% 1,000 ML IV SCH (02:17)
[2020-05-21] MEDS: MAGNESIUM OXIDE 400 MG TAB PO SCH ×2 (03:55→14:33)
[2020-05-21] MEDS: HEPARIN SODIUM,PORCINE 5,000 UNIT/ML 1 ML VIAL SQ SCH ×2 (08:22→19:50)
[2020-05-21 08:23] LABS: HCT 42.5 % (39.0-53.0); HGB 14.1 gm/dL (13.0-17.5); MCH 33.2 pg (25.0-35.0); MCHC 33.3 g/dL (31.0-37.0); MCV 99.7 fL (80.0-100.0); Mean Platelet Volume 8.4; Platelet Count 105 k/uL (150-450); RBC 4.26 m/uL (4.30-5.90); RDW 12.9 % (11.5-15.5); WBC 8.1 k/uL (3.8-10.6)
[2020-05-21] MEDS: CHOLECALCIFEROL 25 MCG (1000 IU) TABLET PO SCH (08:23)
[2020-05-21] MEDS: PANTOPRAZOLE 40 MG TABLET PO SCH (08:23)
[2020-05-21] MEDS: TAMSULOSIN 0.4 MG CAP.ER.24H PO SCH ×2 (08:23→19:50)
[2020-05-21] MEDS ORDERED: METOPROLOL TARTRATE 25 MG TAB PO SCH ×2 (09:00→16:00)
[2020-05-21 09:11] LABS: ALT 184 U/L (4-49); African American GFR (CKD) 81 (>60 ml/min/1.73 sqM); Albumin 3.2 g/dL (3.5-5.0); Albumin/Globulin Ratio 1.1; Anion Gap 6 mmol/L; Blood Urea Nitrogen 22 mg/dL (9-20); Calcium 8.6 mg/dL (8.4-10.2); Carbon Dioxide 23 mmol/L (22-30); Chloride 109 mmol/L (98-107); Globulin 2.9 g/dL; Glucose 129 mg/dL (74-99); Non-African American GFR(CKD) 70 (>60 ml/min/1.73 sqM); Sodium 138 mmol/L (137-145); Total Bilirubin 4.2 mg/dL (0.2-1.3); Total Protein 6.1 g/dL (6.3-8.2)
[2020-05-21 09:21] LABS: AST 283 U/L (17-59); Alkaline Phosphatase 128 U/L (38-126)
--- NOTE | 2020-05-21 11:37 | P.CRDCN ---
History of Present Illness Consult date: 05/21/20 Chief complaint: Abdominal discomfort History of present illness: This is an 85-year-old gentleman who was somewhat poor historian we requested to see for further evaluation of cardiac arrhythmia. The patient does have coronary artery disease and he underwent coronary artery bypass grafting 4 with HYATT to LAD and SVG to OM1 and SVG to OM to as well as SVG to PDA of the RCA. Beside that he does have hypertension and dyslipidemia. The patient follows with Dr. Austin on regular basis in our office. The patient presented mainly because of abdominal discomfort has been going for the last few days. Beside that he was experiencing also diarrhea. No fever and no chills. No chest pain and no chest discomfort. And no shortness of breath. The workup indicate that the bilirubin was elevated and subsequently the gastrointestinal service was consulted to see the patient. He is in process of having an MRCP. There is a concern about common bile duct stone. We consulted to see the patient mainly because of an episode of nonsustained ventricular tachycardia of 22 beats. During that episode the patient was completely asymptomatic. Also the patient did not have any chest pain or chest discomfort he presented to the hospital nor shortness of breath. He is somewhat frail 85-year-old gentleman and he is somewhat poor historian. No dizziness or lightheadedness and no loss of consciousness or syncope before he presented to the hospital. His magnesium was borderline and he was given magnesium. Potassium was within normal limits. He is on metoprolol at 25 mg by mouth twice a day. I am going to increase that to 25 mg by mouth 3 times a day. The magnesium was replaced. We'll obtain an echocardiogram was Doppler. Beside that his troponin was borderline. The EKG showed sinus rhythm with nonspecific ST and T wave abnormalities in the inferior leads. Past Medical History Past Medical History: Coronary Artery Disease (CAD), Chest Pain / Angina, Hearing Disorder / Deafness, Hyperlipidemia, Myocardial Infarction ([place]), Prostate Disorder Additional Past Medical History / Comment(s): pt poor historian Last Myocardial Infarction Date:: 2005 History of Any Multi-Drug Resistant Organisms: None Reported Past Surgical History: Coronary Bypass/CABG, Heart Catheterization With Stent, Hernia Repair, Orthopedic Surgery Additional Past Surgical History / Comment(s): INJECTION IN SPINE FOR BACK PAIN- IN OFFICE =epidural steroid injectionGROWTH REMOVED FROM LEFT ANTERIOR LOWER LEG- SCIATIC NERVE PAIN cabg 5 years ago Past Anesthesia/Blood Transfusion Reactions: No Reported Reaction Additional Past Anesthesia/Blood Transfusion Reaction / Comment(s): NEVER HAD BLOOD TRANSFUSION Date of Last Stent Placement:: 2005 Past Psychological History: No Psychological Hx Reported Smoking Status: Former smoker Past Alcohol Use History: Daily Past Drug Use History: None Reported Additional Drug Use History / Comment(s): SMOKED A PACK/ AT MOST WHEN SMOKED - Past Family History Brother(s) Family Medical History: Cancer Father Family Medical History: Diabetes Mellitus, Myocardial Infarction ([place]) Additional Family Medical History / Comment(s): GLAUCOMA, AORTIC ANEURYSM Mother Family Medical History: CVA/TIA Medications and Allergies Home Medications Medication Instructions Recorded Confirmed Type Tamsulosin [Flomax] 0.4 cap PO BID 05/31/14 05/19/20 History Finasteride [Proscar] 5 mg PO HS 12/08/16 05/19/20 History Metoprolol Tartrate [Lopressor] 25 mg PO QAM 12/08/16 05/19/20 History Cholecalciferol [Vitamin D3 (25 25 mcg PO DAILY 05/19/20 05/19/20 History Mcg = 1000 Iu)] Losartan [Cozaar] 12.5 mg PO HS 05/19/20 05/19/20 History Rosuvastatin Calcium [Crestor] 5 mg PO HS 05/19/20 05/19/20 History Urivarx 1 cap PO HS 05/19/20 05/19/20 History Vitamin E 400 unit PO DAILY 05/19/20 05/19/20 History guaiFENesin [Mucinex] 600 mg PO BID PRN 05/19/20 05/19/20 History Allergies Allergy/AdvReac Type Severity Reaction Status Date / Time No Known Allergies Allergy Verified 05/19/20 21:22 Physical Exam Vitals: Vital Signs Temp Pulse Resp BP Pulse Ox 05/21/20 08:05 61 18 05/21/20 07:00 98.1 F 61 18 134/76 92 L 05/21/20 01:11 99.9 F H 69 15 153/73 91 L 05/20/20 20:21 77 146/77 05/20/20 19:50 98.8 F 77 16 146/77 97 05/20/20 15:01 97.6 F 59 L 17 145/69 93 L Intake and Output 05/20/20 05/21/20 05/21/20 22:59 06:59 14:59 Other: Voiding Method Toilet Toilet Diaper Diaper # Voids 1 1 - Constitutional General appearance: no acute distress - Respiratory Respiratory: bilateral: diminished - Cardiovascular Rhythm: regular Heart sounds: normal: S1, S2 Abnormal Heart Sounds: systolic murmur Results 05/21/20 07:58 05/21/20 07:58 Cardiac Enzymes 05/21/20 05/21/20 05/21/20 Range/Units 04:55 07:58 08:00 AST 283 H (17-59) U/L Troponin I 0.080 H* 0.064 H* (0.000-0.034) ng/mL CBC 05/21/20 Range/Units 07:58 WBC 8.1 (3.8-10.6) k/uL RBC 4.26 L (4.30-5.90) m/uL Hgb 14.1 (13.0-17.5) gm/dL Hct 42.5 (39.0-53.0) % Plt Count 105 L (150-450) k/uL Comprehensive Metabolic Panel 05/21/20 Range/Units 07:58 Sodium 138 (137-145) mmol/L Potassium 4.0 (3.5-5.1) mmol/L Chloride 109 H (98-107) mmol/L Carbon Dioxide 23 (22-30) mmol/L BUN 22 H (9-20) mg/dL Creatinine 0.98 (0.66-1.25) mg/dL Glucose 129 H (74-99) mg/dL Calcium 8.6 (8.4-10.2) mg/dL AST 283 H (17-59) U/L ALT 184 H (4-49) U/L Alkaline Phosphatase 128 H (38-126) U/L Total Protein 6.1 L (6.3-8.2) g/dL Albumin 3.2 L (3.5-5.0) g/dL Current Medications Generic Name Dose Route Start Last Admin Trade Name Freq PRN Reason Stop Dose Admin Cholecalciferol 25 mcg 05/20/20 09:00 05/21/20 08:23 Cholecalciferol 25 Mcg (1000 Iu) Tablet PO 25 mcg DAILY HAKAN Administration Finasteride 5 mg 05/20/20 21:00 05/20/20 20:27 Finasteride 5 Mg Tab PO 5 mg HS HAKAN Administration Guaifenesin 600 mg 05/20/20 08:16 Guaifenesin 600 Mg Tablet.Er PO BID PRN Congestion Heparin Sodium (Porcine) 5,000 unit 05/20/20 09:00 05/21/20 08:22 Heparin Sodium,Porcine 5,000 Unit/Ml 1 Ml Vial SQ 5,000 unit Q12HR HAKAN Administration Sodium Chloride 1,000 mls @ 75 mls/hr 05/19/20 23:00 05/21/20 02:17 Saline 0.9% IV Not Given .[id number] HAKAN Levofloxacin 500 mg/ IV 100 mls @ 100 mls/hr 05/22/20 07:00 Solution IVPB 05/22/20 07:59 Q24H HAKAN Losartan Potassium 12.5 mg 05/20/20 21:00 05/20/20 20:26 Losartan 25 Mg Tab PO 12.5 mg HS HAKAN Administration Magnesium Oxide 400 mg 05/21/20 04:00 05/21/20 03:55 Magnesium Oxide 400 Mg Tab PO 400 mg DAILY HAKAN Administration Metoprolol Tartrate 25 mg 05/21/20 16:00 Metoprolol Tartrate 25 Mg Tab PO TID HAKAN Naloxone HCl 0.2 mg 05/19/20 22:54 Naloxone 0.4 Mg/Ml 1 Ml Vial IV Q2M PRN Opioid Reversal Ondansetron HCl 4 mg 05/19/20 22:58 Ondansetron 4 Mg/2 Ml Vial IVP Q8H PRN Nausea Pantoprazole Sodium 40 mg 05/21/20 07:30 05/21/20 08:23 Pantoprazole 40 Mg Tablet PO 40 mg [id number] HAKAN Administration Tamsulosin HCl 0.4 mg 05/20/20 09:00 05/21/20 08:23 Tamsulosin 0.4 Mg Cap.Er.24h PO 0.4 mg BID HAKAN Administration Intake and Output 05/20/20 05/21/20 05/21/20 22:59 06:59 14:59 Other: Voiding Method Toilet Toilet Diaper Diaper # Voids 1 1 05/21/20 07:58 05/21/20 07:58 Assessment and Plan Assessment: Assessment #1 abdominal discomfort associated with elevated bilirubin. Gastrointestinal service is on the case #2 non-sustained ventricular tachycardia episode. During that episode the patient was asymptomatic #3 electrolytes imbalance with borderline low magnesium. The magnesium was replaced #4 coronary artery disease and prior revascularization #5 multiple comorbid conditions Plan #1 continue the current medical regimen #2 increase the dose of metoprolol #3 obtain an echocardiogram was Doppler #4 monitor the potassium and magnesium #5 follow-up with the patient
--- NOTE | 2020-05-21 12:13 | ECHOF ---
Referral Reason:LV function, [facility] MEASUREMENTS -------- HEIGHT: 177.8 cm WEIGHT: 90.7 kg BP: 134/76 RVIDd: 3.0 cm (< 3.3) IVSd: 1.4 cm (0.6 - 1.1) LVIDd: 4.8 cm (3.9 - 5.3) LVPWd: 1.3 cm (0.6 - 1.1) IVSs: 1.8 cm LVIDs: 5.0 cm LVPWs: 1.5 cm LA Diam: 4.4 cm (2.7 - 3.8) LAESV Index (A-L): 44.47 ml/m Ao Diam: 4.2 cm (2.0 - 3.7) AV Cusp: 1.9 cm (1.5 - 2.6) MV EXCURSION: 8.850 mm (> 18.000) MV EF SLOPE: 45 mm/s (70 - 150) EPSS: 1.6 cm MV E Mookie: 1.02 m/s MV DecT: 186 ms MV A Mookie: 0.93 m/s MV E/A Ratio: 1.10 AV maxP.88 mmHg AV meanP.98 mmHg RAP: 5.00 mmHg RVSP: 49.78 mmHg FINDINGS -------- This was a technically adequate study. The left ventricular size is normal. There is moderate concentric left ventricular hypertrophy. O verall left ventricular systolic function is moderately impaired with, an EF between 35 - 40 %. The right ventricle is normal in size. LA is moderately dilated 34-39 ml/m2 The right atrium is normal in size. 5.0mg of Lumason was utilized for enhancement of images Interatrial and interventricular septum intact. There is mild aortic valve sclerosis. The mitral valve leaflets are mildly thickened. Mild mitral annular calcification present. Mild m itral regurgitation is present. Mild tricuspid regurgitation present. There is moderate pulmonary hypertension. The right ventric ular systolic pressure, as measured by Doppler, is 49.78mmHg. Trace/mild (physiologic) pulmonic regurgitation. The aortic root is dilated measuring 4.2cm. Normal inferior vena cava with normal inspiratory collapse consistent with estimated right atrial pre ssure of 5 mmHg. There is no pericardial effusion. CONCLUSIONS -------- 1. The left ventricular size is normal. 2. There is moderate concentric left ventricular hypertrophy. 3. Overall left ventricular systolic function is moderately impaired with, an EF between 35 - 40 %. 4. LA is moderately dilated 34-39 ml/m2 5. 5.0mg of Lumason was utilized for enhancement of images 6. There is mild aortic valve sclerosis. 7. The mitral valve leaflets are mildly thickened. 8. Mild mitral annular calcification present. 9. Mild mitral regurgitation is present. 10. Mild tricuspid regurgitation present. 11. There is moderate pulmonary hypertension. 12. The right ventricular systolic pressure, as measured by Doppler, is 49.78mmHg. 13. Trace/mild (physiologic) pulmonic regurgitation. 14. The aortic root is dilated measuring 4.2cm. 15. There is no pericardial effusion. REAL ESTATE ASSISTANT: Nicole Sanabria RDCS
--- NOTE | 2020-05-21 13:05 | P.PN ---
Subjective Progress Note Date: 05/21/20 Principal diagnosis: Abdominal pain, elevated LFTs The patient is seen and examined enough at the bedside. He denies any abdominal pain, nausea, or vomiting. Today total bilirubin 4.2, alkaline phosphatase 128, AST 283, ALT 184, all trending down. Patient had an MRCP done yesterday with an impression of multiple common bile duct stones are present. Mild extrahepatic biliary dilation. No intrahepatic biliary dilation. Additional multiple intraluminal gallstones with abnormal gallbladder wall thickening. Acute cholecystitis cannot be excluded. 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 Consider surgical exploration or further investigation or confirmation with CT abdomen as due to patient size and age MRI abdomen is very difficult for optimal imaging. Mild diffuse fatty infiltration of liver is confirmed. Objective - Vital Signs Vital signs: Vital Signs Temp 98.1 F 05/21/20 07:00 Pulse 61 05/21/20 07:00 Resp 18 05/21/20 07:00 BP 134/76 05/21/20 07:00 Pulse Ox 92 L 05/21/20 07:00 Intake & Output 05/20/20 05/21/20 05/21/20 18:59 06:59 18:59 Other: Voiding Method Toilet Diaper # Voids 3 1 - Exam General appearance: The patient is alert, oriented, appears in no acute distress. Obese. HET: Head is normocephalic and atraumatic. Conjunctiva pink. Sclera icteric. Neck: Supple without lymphadenopathy. Abdomen: Soft, right upper quadrant tenderness, nondistended with bowel sounds. No guarding or rigidity. Extremities: Normal skin color and turgor. No pedal edema Skin: No rashes, mild no jaundice Neurological: No focal deficits. Alert and oriented 3. - Labs CBC & Chem 7: 05/21/20 07:58 05/21/20 07:58 Labs: Abnormal Lab Results - Last 24 Hours (Table) 05/21/20 05/21/20 05/21/20 Range/Units 04:55 07:58 07:58 RBC 4.26 L (4.30-5.90) m/uL Plt Count 105 L (150-450) k/uL Chloride 109 H (98-107) mmol/L BUN 22 H (9-20) mg/dL Glucose 129 H (74-99) mg/dL Total Bilirubin 4.2 H (0.2-1.3) mg/dL AST 283 H (17-59) U/L ALT 184 H (4-49) U/L Alkaline Phosphatase 128 H (38-126) U/L Troponin I 0.080 H* (0.000-0.034) ng/mL Total Protein 6.1 L (6.3-8.2) g/dL Albumin 3.2 L (3.5-5.0) g/dL 05/21/20 Range/Units 08:00 RBC (4.30-5.90) m/uL Plt Count (150-450) k/uL Chloride (98-107) mmol/L BUN (9-20) mg/dL Glucose (74-99) mg/dL Total Bilirubin (0.2-1.3) mg/dL AST (17-59) U/L ALT (4-49) U/L Alkaline Phosphatase (38-126) U/L Troponin I 0.064 H* (0.000-0.034) ng/mL Total Protein (6.3-8.2) g/dL Albumin (3.5-5.0) g/dL Microbiology - Last 24 Hours (Table) 05/19/20 02:49 Urine Culture - Preliminary Urine,Voided Assessment and Plan (1) Transaminitis Narrative/Plan: This is an 85-year-old gentleman who presented to the hospital with acute onset of abdominal pain associated with nausea vomiting and dizziness that started 2 days ago. At the time of admission to the hospital he was noted to have elevated serum transaminases with jaundice with a bilirubin of 4.7 and significant elevation of serum transaminases, with an ultrasound showing evidence of gallstones but no biliary ductal dilation. At this time possibility of choledochal lithiasis is to be considered Patient had an MRCP done yesterday with an impression of multiple common bile duct stones are present. Mild extrahepatic biliary dilation. No intrahepatic biliary dilation. Additional multiple intraluminal gallstones with abnormal gallbladder wall thickening. Acute cholecystitis cannot be excluded. 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 Consider surgical exploration or further investigation or confirmation with CT abdomen as due to patient size and age MRI abdomen is very difficult for optimal imaging. Mild diffuse fatty infiltration of liver is confirmed. Current Visit: Yes Status: Acute Code(s): R74.01 - ELEVATION OF LEVELS OF LIVER TRANSAMINASE LEVELS SNOMED Code(s): 919067773 (2) Abdominal pain Current Visit: Yes Status: Acute Code(s): R10.9 - UNSPECIFIED ABDOMINAL PAIN SNOMED Code(s): 12873538 (3) Nausea & vomiting Current Visit: Yes Status: Acute Code(s): R11.2 - NAUSEA WITH VOMITING, UNSPECIFIED SNOMED Code(s): 94204711 Plan: 1. Heart Healthy diet, nothing by mouth after midnight 2. Pain medication as needed 3. Antiemetics as needed 4. Protonix twice a day 5. Patient scheduled for ERCP tomorrow. 6. Levaquin and Indocin as ordered one hour prior to procedure 7. Surgical service is consulted 8. Cardiology for cardiac clearance 9. Repeat CBC, INR, CMP in the a.m. 10. Hold heparin prior to procedure The Risks and benefits of the procedure discussed in detail with the patient and his . All questions answered to the best of our ability. They seemingly understand and would like to proceed with ERCP Dr. Villegas I agree with the dictator's note, documented as a scribe by Maria Ines Aguirre.
--- NOTE | 2020-05-21 14:56 | P.PN ---
Subjective Progress Note Date: 05/21/20 HISTORY OF PRESENT ILLNESS This is an 85-year-old male patient of Dr. England with past medical history of non-ST elevated myocardial infarction status post CABG 4, HYATT to LAD, SVG to first obtuse marginal, SVG to second obtuse marginal, SVG to RCA, and previous stenting of the RCA, hypertension hypertensive cardiovascular disease, hyperlipidemia, benign prostatic hypertrophy, chronic back pain status post steroid injections and pain procedures, remote history of tobacco use. Patient states that he had a little bit of a stomachache and vomiting diarrhea and dizziness. He states the dizziness has been a couple years. The abdominal discomfort was in the bilateral lower quadrants that have resolved completely. He denies having any dysuria. He denies any pain at all. Patient presented to [facility] emergency center for evaluation. He was afebrile, heart rate 66, blood pressure 106/66, pulse ox 94% on room air. EKG was sinus rhythm with no acute ST changes. WBC 10.6, hemoglobin 14.9 and platelet count 147. Electrolytes normal, BUN 27 creatinine 1.31. Blood sugar 182. Magnesium 1.9. Total bilirubin 4.7, AST 1565, ALT 370, alkaline phosphatase 187. Serum alcohol level less than 10. Lactic acid 2.9. Troponin 0.014. ProBNP 3390. Urinalysis clear, bilirubin 1+, protein trace, leukoesterase large, WBC 70. Liver ultrasound revealed no focal liver defect. Possible fatty infiltration of the liver. Cholelithiasis. No dilation seen of the intrahepatic bile ducts. Chest x-ray reveals fibrotic changes and subsegmental atelectasis at the lung bases. No heart failure. Patient was given 1 L of IV fluids, admitted to the MedSur floor and consult requested with GI. 05/21: Echocardiogram reveals EF of 35-40%, mild mitral regurgitation, mild tricuspid regurgitation, moderate pulmonary hypertension. Patient underwent MRCP which revealed multiple common bile duct stones. Mild extrahepatic biliary dilatation. No intrahepatic biliary dilatation. Additional multiple intraluminal gallstones with abnormal gallbladder wall thickening. Acute cholecystitis cannot be excluded. Large duodenal diverticulum. Consult with general surgery has been added with Dr. Basilio. Patient is scheduled for ERCP tomorrow. Patient has been afebrile, heart rate 60s, blood pressure 134/76, pulse ox 92% on room air. Repeat blood work reveals platelet count 105. Creatinine 0.98. Total bilirubin 4.2, AST 283, ALT 184, alkaline phosphatase 128. Troponin 0.080 and 0.064. Cardiology is on consult and metoprolol increased. Patient had a nonsustained ventricular tachycardia episode and patient was asymptomatic. REVIEW OF SYSTEMS The time of my evaluation: Constitutional: No fever, no chills, no night sweats. No weight change. No weakness, fatigue or lethargy. No daytime sleepiness. EENT: No headache. No blurred vision or double vision, no loss of vision. No loss of Hearing, no ringing in the ears, no dizziness. No nasal drainage or congestion. No epistaxis. No sore throat. Lungs: No shortness of breath, cough, no sputum production. No wheezing. Cardiovascular: No chest pain, no lower extremity edema. No palpitations. No paroxysmal nocturnal dyspnea. No orthopnea. No lightheadedness or dizziness. No syncopal episodes. Abdominal: No abdominal pain. No nausea, vomiting. No diarrhea. No cons tipation. No bloody or tarry stools.. No loss of appetite. Genitourinary: No dysuria, increased frequency, urgency. No urinary retention. Musculoskeletal: No myalgias. No muscle weakness, no gait dysfunction, no frequent falls. No back pain. No neck pain. Integumentary: No wounds, no lesions. No rash or pruritus. No unusual bruising. No change in hair or nails. Neurologic: No aphasia. No facial droop. No change in mentation. No head injury. No headache. No paralysis. No paresthesia. Psychiatric: No depression. No anxiety. No mood swings. Endocrine: No abnormal blood sugars. No weight change. No excessive sweating or thirst. No cold intolerance. PHYSICAL EXAMINATION Gen: This is 85-year-old male. He is resting bed and appears to be comfortable and in no acute distress. HEENT: Head is atraumatic, normocephalic. Pupils equal, round. Sclerae is anicteric. NECK: Supple. No JVD. No lymphadenopathy. No thyromegaly. LUNGS: Clear to auscultation. No wheezes or rhonchi. No intercostal retractions. HEART: Regular rate and rhythm. No murmur. ABDOMEN: Soft. Bowel sounds are present. No masses. No tenderness. No right upper quadrant tenderness. EXTREMITIES: No pedal edema. No calf tenderness. NEUROLOGICAL: Patient is awake, alert and oriented x3. Cranial nerves 2 through 12 are grossly intact. ASSESSMENT AND PLAN 1. Transaminitis of unclear etiology secondary to CBD stones status post MRCP, scheduled for ERCP Sunday. Consult with GI appreciated. Crestor placed on hold. 2. Lactic acidosis, improving status post 1 L of IV fluids. 3. Episode of nonsustained ventricular tachycardia, asymptomatic. Cardiology consult appreciated. 4. Hypertension, hypertensive cardio vascular disease. Continue losartan 12.5 mg at bedtime, Lopressor 25 mg increased to twice daily. 5. History of coronary artery disease status post CABG. Continue metoprolol. 6. Hyperlipidemia. Statin on hold due to elevated liver function test. 7. Benign prostatic hypertrophy. Continue Flomax 0.4 mg twice daily. Monitor for urinary retention. 8. Chronic back pain status post multiple pain procedures, stable. 9. GI prophylaxis. Protonix 40 mg daily. 10. Thrombocytopenia. Monitor. 11. GI prophylaxis. Protonix 40 mg IV daily. 12. DVT prophylaxis. Heparin subcu. DISCHARGE PLAN Home Impression and plan of care have been directed as dictated by the signing physician. Pauly Wakefield nurse practitioner acting as scribe for signing physician. Objective - Vital Signs Vital signs: Vital Signs Temp 98.1 F 05/21/20 07:00 Pulse 61 05/21/20 07:00 Resp 18 05/21/20 07:00 BP 134/76 05/21/20 07:00 Pulse Ox 92 L 05/21/20 07:00 Intake & Output 05/20/20 05/21/20 05/21/20 18:59 06:59 18:59 Other: Voiding Method Toilet Diaper # Voids 3 1 - Labs CBC & Chem 7: 05/21/20 07:58 05/21/20 07:58 Labs: Abnormal Lab Results - Last 24 Hours (Table) 05/21/20 05/21/20 Range/Units 04:55 07:58 RBC 4.26 L (4.30-5.90) m/uL Plt Count 105 L (150-450) k/uL Troponin I 0.080 H* (0.000-0.034) ng/mL Microbiology - Last 24 Hours (Table) 05/19/20 02:49 Urine Culture - Preliminary Urine,Voided
--- NOTE | 2020-05-21 16:34 | P.GSCN ---
History of Present Illness Consult date: 05/21/20 Reason for Consult: choledocholithiasis History of present illness: The patient is a 85-year-old man who was brought to the emergency department from home being dizzy and being able to stand. Sunday he had had some nausea, vomiting and diarrhea. Did not have much of an appetite that day. Had some abdominal pain. Which resolved. He was brought in and evaluated and found to have gallstones and markedly elevated liver function tests. MRCP was done showing choledocholithiasis. ERCP is scheduled for tomorrow. Currently not having any abdominal pain. Review of Systems All systems: negative Past Medical History Past Medical History: Coronary Artery Disease (CAD), Chest Pain / Angina, Hearing Disorder / Deafness, Hyperlipidemia, Myocardial Infarction (DE), Prostate Disorder Additional Past Medical History / Comment(s): pt poor historian Last Myocardial Infarction Date:: 2005 History of Any Multi-Drug Resistant Organisms: None Reported Past Surgical History: Coronary Bypass/CABG, Heart Catheterization With Stent, Hernia Repair, Orthopedic Surgery Additional Past Surgical History / Comment(s): INJECTION IN SPINE FOR BACK PAIN- IN OFFICE =epidural steroid injectionGROWTH REMOVED FROM LEFT ANTERIOR LOWER LEG- SCIATIC NERVE PAIN cabg 5 years ago Past Anesthesia/Blood Transfusion Reactions: No Reported Reaction Additional Past Anesthesia/Blood Transfusion Reaction / Comm: NEVER HAD BLOOD TRANSFUSION Date of Last Stent Placement:: 2005 Past Psychological History: No Psychological Hx Reported Smoking Status: Former smoker Past Alcohol Use History: Daily Past Drug Use History: None Reported Additional Drug Use History / Comment(s): SMOKED A PACK/ AT MOST WHEN SMOKED - Past Family History Brother(s) Family Medical History: Cancer Father Family Medical History: Diabetes Mellitus, Myocardial Infarction (DE) Additional Family Medical History / Comment(s): GLAUCOMA, AORTIC ANEURYSM Mother Family Medical History: CVA/TIA Medications and Allergies Home Medications Medication Instructions Recorded Confirmed Type Tamsulosin [Flomax] 0.4 cap PO BID 05/31/14 05/19/20 History Finasteride [Proscar] 5 mg PO HS 12/08/16 05/19/20 History Metoprolol Tartrate [Lopressor] 25 mg PO QAM 12/08/16 05/19/20 History Cholecalciferol [Vitamin D3 (25 25 mcg PO DAILY 05/19/20 05/19/20 History Mcg = 1000 Iu)] Losartan [Cozaar] 12.5 mg PO HS 05/19/20 05/19/20 History Rosuvastatin Calcium [Crestor] 5 mg PO HS 05/19/20 05/19/20 History Urivarx 1 cap PO HS 05/19/20 05/19/20 History Vitamin E 400 unit PO DAILY 05/19/20 05/19/20 History guaiFENesin [Mucinex] 600 mg PO BID PRN 05/19/20 05/19/20 History Allergies Allergy/AdvReac Type Severity Reaction Status Date / Time No Known Allergies Allergy Verified 05/19/20 21:22 Surgical - Exam Osteopathic Statement: *. No significant issues noted on an osteopathic structural exam other than those noted in the History and Physical/Consult. Vital Signs Temp Pulse Resp BP Pulse Ox 98.7 F 66 18 106/66 94 L 05/19/20 20:02 05/19/20 20:02 05/19/20 20:02 05/19/20 20:02 05/19/20 20:02 - General well developed, well nourished, moderate distress - Eyes normal ocular movement - Neck trachea midline - Respiratory normal respiratory effort, clear to auscultation - Cardiovascular Rhythm: regular - Abdomen Abdomen: soft, non tender, bowel sounds, no guarding, no rigid, no rebound, no distended Hernia: no umbilical Results - Labs 05/21/20 07:58 05/21/20 07:58 Abnormal Lab Results - Last 24 Hours (Table) 05/21/20 05/21/20 05/21/20 Range/Units 04:55 07:58 07:58 RBC 4.26 L (4.30-5.90) m/uL Plt Count 105 L (150-450) k/uL Chloride 109 H (98-107) mmol/L BUN 22 H (9-20) mg/dL Glucose 129 H (74-99) mg/dL Total Bilirubin 4.2 H (0.2-1.3) mg/dL AST 283 H (17-59) U/L ALT 184 H (4-49) U/L Alkaline Phosphatase 128 H (38-126) U/L Troponin I 0.080 H* (0.000-0.034) ng/mL Total Protein 6.1 L (6.3-8.2) g/dL Albumin 3.2 L (3.5-5.0) g/dL 05/21/20 Range/Units 08:00 RBC (4.30-5.90) m/uL Plt Count (150-450) k/uL Chloride (98-107) mmol/L BUN (9-20) mg/dL Glucose (74-99) mg/dL Total Bilirubin (0.2-1.3) mg/dL AST (17-59) U/L ALT (4-49) U/L Alkaline Phosphatase (38-126) U/L Troponin I 0.064 H* (0.000-0.034) ng/mL Total Protein (6.3-8.2) g/dL Albumin (3.5-5.0) g/dL Microbiology - Last 24 Hours (Table) 05/19/20 02:49 Urine Culture - Final Urine,Voided Diabetes panel 05/21/20 Range/Units 07:58 Sodium 138 (137-145) mmol/L Potassium 4.0 (3.5-5.1) mmol/L Chloride 109 H (98-107) mmol/L Carbon Dioxide 23 (22-30) mmol/L BUN 22 H (9-20) mg/dL Creatinine 0.98 (0.66-1.25) mg/dL Glucose 129 H (74-99) mg/dL Calcium 8.6 (8.4-10.2) mg/dL AST 283 H (17-59) U/L ALT 184 H (4-49) U/L Alkaline Phosphatase 128 H (38-126) U/L Total Protein 6.1 L (6.3-8.2) g/dL Albumin 3.2 L (3.5-5.0) g/dL Calcium panel 05/21/20 Range/Units 07:58 Calcium 8.6 (8.4-10.2) mg/dL Albumin 3.2 L (3.5-5.0) g/dL Pituitary panel 05/21/20 Range/Units 07:58 Sodium 138 (137-145) mmol/L Potassium 4.0 (3.5-5.1) mmol/L Chloride 109 H (98-107) mmol/L Carbon Dioxide 23 (22-30) mmol/L BUN 22 H (9-20) mg/dL Creatinine 0.98 (0.66-1.25) mg/dL Glucose 129 H (74-99) mg/dL Calcium 8.6 (8.4-10.2) mg/dL Adrenal panel 05/21/20 Range/Units 07:58 Sodium 138 (137-145) mmol/L Potassium 4.0 (3.5-5.1) mmol/L Chloride 109 H (98-107) mmol/L Carbon Dioxide 23 (22-30) mmol/L BUN 22 H (9-20) mg/dL Creatinine 0.98 (0.66-1.25) mg/dL Glucose 129 H (74-99) mg/dL Calcium 8.6 (8.4-10.2) mg/dL Total Bilirubin 4.2 H (0.2-1.3) mg/dL AST 283 H (17-59) U/L ALT 184 H (4-49) U/L Alkaline Phosphatase 128 H (38-126) U/L Total Protein 6.1 L (6.3-8.2) g/dL Albumin 3.2 L (3.5-5.0) g/dL Assessment and Plan (1) Choledocholithiasis Current Visit: Yes Status: Acute Code(s): K80.50 - CALCULUS OF BILE DUCT W/O CHOLANGITIS OR CHOLECYST W/O OBST SNOMED Code(s): 283987811 (2) BPH (benign prostatic hyperplasia) Current Visit: Yes Status: Acute Code(s): N40.0 - BENIGN PROSTATIC HY PERPLASIA WITHOUT LOWER URINRY TRACT SYMP SNOMED Code(s): 804196537 (3) Coronary atherosclerosis of [place] coronary artery Current Visit: No Status: Acute Priority: High Code(s): I25.10 - ATHSCL HEART DISEASE OF [place] CORONARY ARTERY W/O ANG PCTRS SNOMED Code(s): 669824279 (4) HTN (hypertension) Current Visit: No Status: Acute Code(s): I10 - ESSENTIAL (PRIMARY) HYPERTENSION SNOMED Code(s): 52286867 (5) S/P CABG (coronary artery bypass graft) Current Visit: No Status: Acute Code(s): Z95.1 - PRESENCE OF AORTOCORONARY BYPASS GRAFT SNOMED Code(s): 711970186 Plan: The patient is to go for ERCP tomorrow. Hopefully this can be done without i ssue, there is a duodenal diverticulum seen on MRCP. If the patient is able to have the choledocholithiasis cleared without complication, and recommend we proceed with laparoscopic cholecystectomy. Did discuss the procedure risks and complications with he and his . He is anxious for surgery prior to discharge. He is at increased risk due to advanced age and history of coronary artery disease. I'll follow with you. Further recommendations to follow.
[2020-05-21] MEDS: FINASTERIDE 5 MG TAB PO SCH (19:50)
[2020-05-21] MEDS: LOSARTAN 25 MG TAB PO SCH (19:50)
[2020-05-21] MEDS: METOPROLOL TARTRATE 25 MG TAB PO SCH (19:50)
[2020-05-22] MEDS: SODIUM CHLORIDE 0.9% 1,000 ML IV SCH ×3 (00:22→16:05)
[2020-05-22 06:06] LABS: HCT 44.5 % (39.0-53.0); HGB 14.8 gm/dL (13.0-17.5); MCH 32.7 pg (25.0-35.0); MCHC 33.2 g/dL (31.0-37.0); MCV 98.2 fL (80.0-100.0); Mean Platelet Volume 8.1; Platelet Count 114 k/uL (150-450); RBC 4.53 m/uL (4.30-5.90); RDW 13.4 % (11.5-15.5); WBC 6.6 k/uL (3.8-10.6)
[2020-05-22 06:17] LABS: ALT 120 U/L (4-49); AST 127 U/L (17-59); African American GFR (CKD) >90 (>60 ml/min/1.73 sqM); Albumin 3.1 g/dL (3.5-5.0); Albumin/Globulin Ratio 1.1; Alkaline Phosphatase 127 U/L (38-126); Anion Gap 4 mmol/L; Blood Urea Nitrogen 18 mg/dL (9-20); Calcium 8.6 mg/dL (8.4-10.2); Carbon Dioxide 25 mmol/L (22-30); Chloride 109 mmol/L (98-107); Globulin 2.9 g/dL; Glucose 115 mg/dL (74-99); Non-African American GFR(CKD) 78 (>60 ml/min/1.73 sqM); Potassium 3.8 mmol/L (3.5-5.1); Sodium 138 mmol/L (137-145); Total Bilirubin 2.4 mg/dL (0.2-1.3)
[2020-05-22 06:20] LABS: Prothrombin Time 10.8 sec (9.0-12.0)
[2020-05-22] MEDS ORDERED: INDOMETHACIN 50MG SUPPOSITORY RECTAL ONE (07:00)
[2020-05-22] MEDS ORDERED: LEVOFLOXACIN 500MG-D5W PMX 500 MG in DEXTROSE/WATER 1 100ML.BAG IVPB SCH (07:00)
[2020-05-22] MEDS: CHOLECALCIFEROL 25 MCG (1000 IU) TABLET PO SCH (07:40)
[2020-05-22] MEDS: MAGNESIUM OXIDE 400 MG TAB PO SCH (07:40)
[2020-05-22] MEDS: PANTOPRAZOLE 40 MG TABLET PO SCH (07:40)
[2020-05-22] MEDS: HEPARIN SODIUM,PORCINE 5,000 UNIT/ML 1 ML VIAL SQ SCH (07:40)
[2020-05-22] MEDS: METOPROLOL TARTRATE 25 MG TAB PO SCH (07:40)
[2020-05-22] MEDS: TAMSULOSIN 0.4 MG CAP.ER.24H PO SCH ×2 (07:40→07:45)
[2020-05-22] MEDS ORDERED: IV FLUID CONTINUATION 1,000 ML IV ONE (08:03)
[2020-05-22] MEDS ORDERED: IOPAMIDOL-300 50ML BTL INJ ONE (08:05)
[2020-05-22] MEDS ORDERED: ePHEDrine SULFATE/0.9% NACL/PF 50 MG/5 ML SYRINGE IV ONE (08:20)
[2020-05-22] MEDS ORDERED: LIDOCAINE 1% INJ 10MG/ML (20 ML MDV) ONE (08:20)
[2020-05-22] MEDS ORDERED: SUCCINYLCHOLINE CHLORIDE 100 MG/5 ML SYR IV ONE (08:20)
[2020-05-22] MEDS ORDERED: ETOMIDATE 2 MG/ML 10 ML VIAL ONE (08:20)
[2020-05-22] MEDS ORDERED: fentaNYL (PF) 50 MCG/ML 2 ML AMP ONE (08:20)
[2020-05-22] MEDS ORDERED: SODIUM CHLORIDE 0.9% 500 ML 500 ML IV ONE (08:42)
[2020-05-22] MEDS ORDERED: LABETALOL SYRINGE 5 MG/ML IVP ONE (09:52)
--- NOTE | 2020-05-22 10:10 | P.PCN ---
Date of Procedure: 05/22/20 Description of Procedure: Brief history: Patient is a 85-year-old male who presented to the hospital with nausea, vomiting and abdominal pain. Laboratory evaluation on presentation significant for elevation in liver enzymes with total bilirubin 4.2, alkaline phosphatase 128, AST 283 and MALT 184 with MRCP performed in evaluation significant for multiple common bile duct stones. Patient currently on broad-spectrum antibiotics therapy. Procedure performed: ERCP failed/aborted Preoperative diagnoses: Choledocholithiasis, elevated liver enzymes, abdominal pain IV sedation per anesthesia Estimated blood loss: Minimal. Procedure: After informed consent was obtained from the patient and after the risks benefits and complications including bleeding perforation and pancreatitis explained in detail the patient was brought into the endoscopy unit. The patient was placed in prone position and IV conscious sedation was administered by anesthesia under continuous monitoring. The Olympus side-viewing duodenoscope was then inserted into the mouth and esophagus intubated without any difficulty. The scope was gradually advanced into the stomach and duodenum. The major papilla was identified without any difficulty and was present along the edge of a large diverticulum. Multiple attempts were made to position the scope in order for cannulation, however given the patient's anatomy this was difficult and the papilla was unable to be cannulated. The procedure was aborted. The patient tolerated the procedure well.. Impression: Failed/aborted ERCP. 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 Recommendations: The findings of this examination were discussed with the patient as well as the patient's family, the primary team and the consulting surgical service. At this time recommendation is for transfer to tertiary center for definitive treatment in evaluation by the advanced endoscopy service. Continue current medical management at this time.
--- NOTE | 2020-05-22 10:27 | FL ---
Fluoroscopy HISTORY: Pain 6 seconds fluoroscopy time supplied to the referring clinician. 1 intraoperative C-arm images docume nt the procedure. See dictated report from gastroenterology.
[2020-05-22 10:29] VITALS: RESP 18
--- NOTE | 2020-05-22 12:14 | P.CNNES ---
History of Present Illness Consult date: 05/22/20 Requesting physician: Megan Mei Reason for Consult: episodes of unresponsivness concerning for seizure History of Present Illness: This is a 85-year-old gentleman with medical history of myocardial infarction s tatus post CABG, hypertension, hyperlipidemia, chronic back pain status post steroid injection, remote history of tobacco use that presented to the emergency department on 05/19/2020 for abdominal pain, nausea and vomiting. Neurology is consulted for episodes of unresponsiveness concerning for seizure. The history is obtained from the patient and his who is at bedside. Per the patient for the last couple years and the patient would have episodes when the he is on his feet where he is not responding lasting few minutes, but during these episodes he feels dizzy as well as lightheaded. denies him having any gaze fixation to one side or the other. She feels like he staring off. Denies of any foaming around the mouth or any jerking of extremities, denies of urinary or bowel incontinence. Again the episode can last a few minutes for the most part. And after that that he is back to baseline. She said the these episodes can happen anytime a day and mostly when he is on his feet and again the patient feels lightheaded and dizzy. He denies of any chest pain or palpitations during these episodes that he recalls. He denies of any history of seizures in the past. Patient denies any warning signs. stated that in the past 6 and the past couple years with happening 2-3 times a week but it's happening more recently. Regarding the patient's history he stated it was normal to his knowledge and there is no complication. He denies any family history of seizures. Patient home medication as Crestor 5 mg, vitamin E, metoprolol, losartan, Flomax, vitamin D3 On presentation the patient had told the report of 4.7, AST is 1565 and the ALT is 270 as well as alkaline phosphatase are 187 which are elevated the serum alcohol was less than 10. Because of his elevated liver function test GI was consulted and as a result the patient underwent ERCP on 05/22/2020 which was significant multiple common bile duct stones. The patient is on broad spectrum antibiotic therapy. The ERCP failed and was aborted. It is mentioned in the GI surgical notes that they recommend for the patient to be transferred to tertiary center for definite treatment. Patient repeated AST is 127 and the ALT of 120. Patient had the troponin of 0.08 and then the last repeated one is 0.064. Cardiology is on board. Review of Systems Review of system: The 12 point system was reviewed and apparent positive and negative per HPI. Past Medical History Past Medical History: Coronary Artery Disease (CAD), Chest Pain / Angina, Hearing Disorder / Deafness, Hyperlipidemia, Myocardial Infarction ([place]), Prostate Disorder Additional Past Medical History / Comment(s): pt poor historian Last Myocardial Infarction Date:: 2005 History of Any Multi-Drug Resistant Organisms: None Reported Past Surgical History: Coronary Bypass/CABG, Heart Catheterization With Stent, Hernia Repair, Orthopedic Surgery Additional Past Surgical History / Comment(s): INJECTION IN SPINE FOR BACK PAIN- IN OFFICE =epidural steroid injectionGROWTH REMOVED FROM LEFT ANTERIOR LOWER LEG- SCIATIC NERVE PAIN cabg 5 years ago Past Anesthesia/Blood Transfusion Reactions: No Reported Reaction Additional Past Anesthesia/Blood Transfusion Reaction / Comment(s): NEVER HAD BLOOD TRANSFUSION Date of Last Stent Placement:: 2005 Past Psychological History: No Psychological Hx Reported Smoking Status: Former smoker Past Alcohol Use History: Daily Past Drug Use History: None Reported Additional Drug Use History / Comment(s): SMOKED A PACK/ AT MOST WHEN SMOKED - Past Family History Brother(s) Family Medical History: Cancer Father Family Medical History: Diabetes Mellitus, Myocardial Infarction ([place]) Additional Family Medical History / Comment(s): GLAUCOMA, AORTIC ANEURYSM Mother Family Medical History: CVA/TIA Medications and Allergies Home Medications Medication Instructions Recorded Confirmed Type Tamsulosin [Flomax] 0.4 cap PO BID 05/31/14 05/19/20 History Finasteride [Proscar] 5 mg PO HS 12/08/16 05/19/20 History Metoprolol Tartrate [Lopressor] 25 mg PO QAM 12/08/16 05/19/20 History Cholecalciferol [Vitamin D3 (25 25 mcg PO DAILY 05/19/20 05/19/20 History Mcg = 1000 Iu)] Losartan [Cozaar] 12.5 mg PO HS 05/19/20 05/19/20 History Rosuvastatin Calcium [Crestor] 5 mg PO HS 05/19/20 05/19/20 History Urivarx 1 cap PO HS 05/19/20 05/19/20 History Vitamin E 400 unit PO DAILY 05/19/20 05/19/20 History guaiFENesin [Mucinex] 600 mg PO BID PRN 05/19/20 05/19/20 History Allergies Allergy/AdvReac Type Severity Reaction Status Date / Time No Known Allergies Allergy Verified 05/19/20 21:22 Physical Examination - Vital Signs Vital Signs: Vital Signs Temp Pulse Resp BP Pulse Ox 05/22/20 10:43 162/89 05/22/20 10:20 64 18 166/90 94 L 05/22/20 10:05 64 16 187/98 95 05/22/20 09:50 97 F L 65 16 194/100 97 05/22/20 08:00 98.0 F 54 L 18 166/80 93 L 05/22/20 06:44 98.0 F 54 L 16 166/80 93 L 05/22/20 03:20 98.2 F 55 L 164/83 94 L 05/21/20 20:00 64 15 05/21/20 18:58 98.5 F 64 15 168/80 97 05/21/20 14:54 97.8 F 59 L 18 149/85 95 Intake and Output 05/21/20 05/22/20 05/22/20 22:59 06:59 14:59 Intake Total 900 700 Balance 900 700 Intake: IV 700 Intake, IV Titration 900 Amount Sodium Chloride 0.9% 1, 900 000 ml @ 75 mls/hr IV . [id number] [facility] Rx#:[id number] Other: Voiding Method Toilet Diaper # Voids 1 3 Weight 90.718 kg GENERAL: The patient is lying in bed and is not in acute distress. CHEST: The heart rate is regular rate rhythm. No murmurs to auscultation. LUNG: Clear to auscultation bilaterally no wheezing noted throughout. Not labored breathing. ABDOMEN/GI: Bowel sounds present in all 4 quadrants. No tenderness to palpation throughout. NEUROLOGICAL: Higher mental function: The patient is awake, alert, oriented to self, place and time. Patient is following commands. No aphasia and no neglect. Cranial nerves: The pupils are round, equal and reactive to light and accommodation. Visual perez are full to confrontation throughout. Extraocular movement is intact no nystagmus is noted. Facial sensation is normal to touch throughout. The facial strength is normal throughout. Hearing is moderately bilaterally to hand rub. Tongue is midline and moved [id number] without any difficulty. No dysarthria is noted. Shoulder shrug is normal bilaterally. Motor: Gait is deferred since patient stated he does not feel that well since just had ERCP procedure and had some sedation. The strength is 5 over 5 throughout. Normal tone and bulk. Cerebellum: Normal finger to nose heel to alicea bilaterally. Sensation: Sensation is normal to touch throughout. Reflexes (right/left) 2+ upper and 1+ lowers. Plantars are downgoing bilaterally. Results Calcium is 8.6. Magnesium is 2.0 which is normal. Ferrara virus PCR was not detected. - Laboratory Findings CBC and BMP: 05/22/20 05:42 05/22/20 05:42 Abnormal Lab Findings: Abnormal Labs 05/19/20 05/19/20 05/19/20 02:49 20:37 20:37 RBC Plt Count 147 L Neutrophils # 9.1 H Lymphocytes # 0.7 L APTT 21.7 L Chloride BUN Creatinine Glucose Plasma Lactic Acid Jamison Total Bilirubin AST ALT Alkaline Phosphatase Troponin I Total Protein Albumin Urine Protein Trace H Urine Bilirubin 1+ H Ur Leukocyte Esterase Large H Urine WBC 70 H Urine Bacteria Few H Urine Mucus Rare H 05/19/20 05/19/20 05/21/20 20:37 20:37 04:55 RBC Plt Count Neutrophils # Lymphocytes # APTT Chloride BUN 27 H Creatinine 1.31 H Glucose 182 H Plasma Lactic Acid Jamison 2.9 H* Total Bilirubin 4.7 H AST 1565 H ALT 370 H Alkaline Phosphatase 187 H Troponin I 0.080 H* Total Protein Albumin Urine Protein Urine Bilirubin Ur Leukocyte Esterase Urine WBC Urine Bacteria Urine Mucus 05/21/20 05/21/20 05/21/20 07:58 07:58 08:00 RBC 4.26 L Plt Count 105 L Neutrophils # Lymphocytes # APTT Chloride 109 H BUN 22 H Creatinine Glucose 129 H Plasma Lactic Acid Jamison Total Bilirubin 4.2 H AST 283 H ALT 184 H Alkaline Phosphatase 128 H Troponin I 0.064 H* Total Protein 6.1 L Albumin 3.2 L Urine Protein Urine Bilirubin Ur Leukocyte Esterase Urine WBC Urine Bacteria Urine Mucus 05/22/20 05/22/20 05:42 05:42 RBC Plt Count 114 L Neutrophils # Lymphocytes # APTT Chloride 109 H BUN Creatinine Glucose 115 H Plasma Lactic Acid Jamison Total Bilirubin 2.4 H AST 127 H ALT 120 H Alkaline Phosphatase 127 H Troponin I Total Protein 6.0 L Albumin 3.1 L Urine Protein Urine Bilirubin Ur Leukocyte Esterase Urine WBC Urine Bacteria Urine Mucus Assessment and Plan Assessment: This is a 85-year-old gentleman that presented to the emergency department on 05/19/2020 for abdominal pain, nausea and vomiting. And it was shown that the patient has Choledocholithitiasis Episodes of unresponsiveness for the last couple years lasting few minutes. Uncertain what episodes are. They don't seem like clear seizure but cannot be r uled out. Acute Choledocholithitiasis History of myocardial infarction status post CABG Hypertension Hyperlipidemia Chronic back pain that receives pain medication X tobacco use Plan: The patient as well as would like further neurological episodes as an outpatient since he does not have any current episodes now and wants his abdominal issues to be addressed first. I notified the the patient and his that he needs a routine EEG and it's best normal he needs a jail EEG as an outpatient or even an epilepsy monitoring unit for 7 days unless a true episode was captured determine whether these are truly epileptic vs nonepileptic in nature. We will hold off on any antiepileptic medication or further imaging per the patient and his 's wishes. She was told to follow-up with a neurologist as an outpatient and it was agreed to follow-up with Dr. Carter (follow-up within 1-2 weeks). We'll defer the management to GI team for his abdominal pain. Also we'll defer the rest of medical management to the primary team. Is seems that the patient is going to be transferred to [facility] for further management of his GI work-up. The plan was discussed with the patient, patient's was at bedside and the patient's nurse. Neurology will sign off. No further neurological workup is needed. Thank you for the consultation. Elliot Gallardo M.D. Neuro-hospitalist Time with Patient: Greater than 30
--- NOTE | 2020-05-22 13:21 | P.DS ---
Providers Date of admission: 05/19/20 22:58 Attending physician: Monica Maguire Consults: 05/19/20 22:55 Consult Physician Urgent Consulting Provider: Lacy Rodriguez Consult Reason/Comments: Elevated LFTs, pain, nauseous, weakness Do you want consulting provider notified?: Yes 05/21/20 06:32 Consult Physician Routine Consulting Provider: Rayray Kitchen Consult Reason/Comments: run of 28 v tach Do you want consulting provider notified?: Already Contacted 05/21/20 12:36 Consult Physician Urgent Consulting Provider: Steff Cartwright Consult Reason/Comments: choledocolithiasis Do you want consulting provider notified?: Yes 05/22/20 09:34 Consult Physician Routine Consulting Provider: Elliot Gallardo Consult Reason/Comments: atypical seizure Do you want consulting provider notified?: Yes Primary care physician: [facility] Course: This is an 85-year-old male patient of Dr. England with past medical history of non-ST elevated myocardial infarction status post CABG 4, HYATT to LAD, SVG to f irst obtuse marginal, SVG to second obtuse marginal, SVG to RCA, and previous stenting of the RCA, hypertension hypertensive cardiovascular disease, hyperlipidemia, benign prostatic hypertrophy, chronic back pain status post steroid injections and pain procedures, remote history of tobacco use. Patient states that he had a little bit of a stomachache and vomiting diarrhea and dizziness. He states the dizziness has been a couple years. The abdominal discomfort was in the bilateral lower quadrants that have resolved completely. He denies having any dysuria. He denies any pain at all. Patient presented to [facility] emergency center for evaluation. He was afebrile, heart rate 66, blood pressure 106/66, pulse ox 94% on room air. EKG was sinus rhythm with no acute ST changes. WBC 10.6, hemoglobin 14.9 and platelet count 147. Electrolytes normal, BUN 27 creatinine 1.31. Blood sugar 182. Magnesium 1.9. Total bilirubin 4.7, AST 1565, ALT 370, alkaline phosphatase 187. Serum alcohol level less than 10. Lactic acid 2.9. Troponin 0.014. ProBNP 3390. Urinalysis clear, bilirubin 1+, protein trace, leukoesterase large, WBC 70. Liver ultrasound revealed no focal liver defect. Possible fatty infiltration of the liver. Cholelithiasis. No dilation seen of the intrahepatic bile ducts. Chest x-ray reveals fibrotic changes and subsegmental atelectasis at the lung bases. No heart failure. Patient was given 1 L of IV fluids, admitted to the [facility] floor and consult requested with GI. 05/21: Echocardiogram reveals EF of 35-40%, mild mitral regurgitation, mild tricuspid regurgitation, moderate pulmonary hypertension. Patient underwent MRCP which revealed multiple common bile duct stones. Mild extrahepatic biliary dilatation. No intrahepatic biliary dilatation. Additional multiple intraluminal gallstones with abnormal gallbladder wall thickening. Acute cholecystitis cannot be excluded. Large duodenal diverticulum. Consult with general surgery has been added with Dr. Basilio. Patient is scheduled for ERCP tomorrow. Patient has been afebrile, heart rate 60s, blood pressure 134/76, pulse ox 92% on room air. Repeat blood work reveals platelet count 105. Creatinine 0.98. Total bilirubin 4.2, AST 283, ALT 184, alkaline phosphatase 128. Troponin 0.080 and 0.064. Cardiology is on consult and metoprolol increased. Patient had a nonsustained ventricular tachycardia episode and patient was asymptomatic. 05/22: he underwent an ERCP today with Dr. mcneill. After multiple attempts are made to position the scope in order for cannulation however given the patient's anatomy this is difficult and the papule was unable to be cannulated. The procedure was aborted and recommendation to transfer to a tertiary treatment Center for evaluation by advanced endoscopic service. Permission was given to the was at the bedside. Also voiced concerns about episodes of freezing and place. states that the patient will be standing and will make no motion to move and unable to answer any questions this will last for approximately 2-3 minutes. Syncope which was evaluated by cardiology for sinus bradycardia syndrome at this time no further recommendations were given per cardiology. Transfer diagnosis: 1. Transaminitis of unclear etiology secondary to CBD stones status post MRCP, scheduled for ERCP Sunday. 2. Lactic acidosis, 3. Episode of nonsustained ventricular tachycardia, asymptomatic. 4. Hypertension, hypertensive cardio vascular disease. 5. History of coronary artery disease status post CABG. 6. Hyperlipidemia. 7. Benign prostatic hypertrophy. 8. Chronic back pain status post multiple pain procedures, 9. Thrombocytopenia. Discharge Disposition: Transfer to [facility] Impression and plan of care have been directed as dictated by the signing physician. Megan Mei nurse practitioner acting as scribe for signing physician. Patient Condition at Discharge: Stable Plan - Discharge Summary Discharge Rx Participant: No New Discharge Prescriptions: No Action Tamsulosin [Flomax] 0.4 cap PO BID Metoprolol Tartrate [Lopressor] 25 mg PO QAM Finasteride [Proscar] 5 mg PO HS Rosuvastatin Calcium [Crestor] 5 mg PO HS Losartan [Cozaar] 12.5 mg PO HS guaiFENesin [Mucinex] 600 mg PO BID PRN PRN Reason: Congestion Vitamin E 400 unit PO DAILY Cholecalciferol [Vitamin D3 (25 Mcg = 1000 Iu)] 25 mcg PO DAILY Urivarx 1 cap PO HS Discharge Medication List Tamsulosin [Flomax] 0.4 cap PO BID 05/31/14 [History] Finasteride [Proscar] 5 mg PO HS 12/08/16 [History] Metoprolol Tartrate [Lopressor] 25 mg PO QAM 12/08/16 [History] Cholecalciferol [Vitamin D3 (25 Mcg = 1000 Iu)] 25 mcg PO DAILY 05/19/20 [History] Losartan [Cozaar] 12.5 mg PO HS 05/19/20 [History] Rosuvastatin Calcium [Crestor] 5 mg PO HS 05/19/20 [History] Urivarx 1 cap PO HS 05/19/20 [History] Vitamin E 400 unit PO DAILY 05/19/20 [History] guaiFENesin [Mucinex] 600 mg PO BID PRN 05/19/20 [History] Follow up Appointment(s)/Referral(s): Vital Medical,Equipment [NON-STAFF] - As Needed (walker) Miguel Angel England MD [Primary Care Provider] - 1 Week
[2020-05-22] MEDS ORDERED: PIPERACILLIN-TAZOBACTAM 3.375 GM in SODIUM CHLORIDE 0.9% 100 ML IVPB STA (13:46)
[2020-05-22 16:14] VITALS: TEMP 97.5
[2020-05-22 16:15] VITALS: BP 156/84; PULSE 61
== END 2020-05-22 18:49 | disposition short-term general hospital (02) | DRG 445 ==
LOC: EC 20:01 → OBSVTOIN 22:58 → 6NMEDSUR 22:58 → 5NMEDONC 23:20 → 4SSUR 05-20 02:45
PROVIDERS: ADMIT Family Medicine; ATTEND Family Medicine
PROC: 0DJ08ZZ Inspection of Upper Intestinal Tract, Via Natural or Artificial Opening Endoscopic (ICD-10-PCS; principal; 2020-05-22 08:00)
DX: K80.62 Calculus of gallbladder and bile duct with acute cholecystitis without obstruction (principal); E87.2 Acidosis; J98.11 Atelectasis; I47.2 Ventricular tachycardia; D69.6 Thrombocytopenia, unspecified; I27.20 Pulmonary hypertension, unspecified; R56.9 Unspecified convulsions; Z20.822 Contact with and (suspected) exposure to COVID-19; K76.0 Fatty (change of) liver, not elsewhere classified; I11.9 Hypertensive heart disease without heart failure; K57.10 Diverticulosis of small intestine without perforation or abscess without bleeding; I25.10 Atherosclerotic heart disease of native coronary artery without angina pectoris; E86.0 Dehydration; E78.5 Hyperlipidemia, unspecified; G89.29 Other chronic pain; M54.9 Dorsalgia, unspecified; N40.0 Benign prostatic hyperplasia without lower urinary tract symptoms; M54.32 Sciatica, left side; I44.0 Atrioventricular block, first degree; I25.2 Old myocardial infarction; H91.90 Unspecified hearing loss, unspecified ear; R00.1 Bradycardia, unspecified; R54 Age-related physical debility; Z53.9 Procedure and treatment not carried out, unspecified reason; Z79.899 Other long term (current) drug therapy; Z87.891 Personal history of nicotine dependence; Z87.19 Personal history of other diseases of the digestive system; Z95.5 Presence of coronary angioplasty implant and graft; Z95.1 Presence of aortocoronary bypass graft; Z98.890 Other specified postprocedural states; Z83.3 Family history of diabetes mellitus; Z83.511 Family history of glaucoma; Z82.49 Family history of ischemic heart disease and other diseases of the circulatory system; Z82.3 Family history of stroke; Z80.7 Family history of other malignant neoplasms of lymphoid, hematopoietic and related tissues
CPT/HCPCS: 36415; 43260; 71046; 74181; 74330; 76705; 80053; 80320; 81001; 83605; 83690; 83735; 83880; 84484; 85025; 85027; 85610; 85730; 87086; 87635; 93005; 93306; 96360; 96361; 96374; 99285